=== PATIENT | female | born 1960 | race African-American/Black ===

== ENCOUNTER 2016-11-11 14:23 | Emergency (ER) | payer OTHER ==
[2016-11-11 14:33] VITALS: TEMP 98.8; BMI 28.3
--- NOTE | 2016-11-11 14:35 | PDOC ---
History of Present Illness <Miriam Casey - Last Filed: 11/11/16 16:31> - General History Source: Patient Exam Limitations: No Limitations - History of Present Illness Initial Comments: 11/11/16 14:58 The patient is a 56 year old female with a significant past medical history of asthma, and sarcoidosis, presenting to the Emergency Department with chest pain , and shortness of breath since Tuesday. She describes the chest pain as constant pressure and pain, 7/10 in intensity, and radiating to her arms, but slightly better since Tuesday. She admits that her breathing is very labored, but reports that this feels much different from an asthma attack. She also admits that she feels lightheaded. She admits that she had a stress test one year ago which was normal. She admits that she takes Prednisone as needed for her sarcoidosis, most recently on Tuesday. The patient denies palpitations, or diaphoresis. Patient denies nausea, vomiting , and diarrhea. Patient denies headache, or visual changes. Patient denies fever , chills, and cough. Patient states that she does not have a drier helper. <Adina Perrin - Last Filed: 11/11/16 17:07> - General Chief Complaint: Chest Pain Stated Complaint: CHEST PAIN Time Seen by Provider: 11/11/16 14:35 Past History - Past Medical History Anemia: No Asthma: No Cancer: No Cardiac Disorders: No CVA: No COPD: No (sarcadoisis) CHF: No Dementia: No Diabetes: No GI Disorders: No Disorders: No HTN: No Hypercholesterolemia: No Liver Disease: No Seizures: No Thyroid Disease: No - Surgical History Abdominal Surgery: No Appendectomy: No Cardiac Surgery: No Cholecystectomy: No Lung Surgery: No Neurologic Surgery: No Orthopedic Surgery: No - Psycho/Social/Smoking Cessation Hx Anxiety: No Suicidal Ideation: No Smoking History: Never smoked Have you smoked in the past 12 months: No Hx Alcohol Use: No Drug/Substance Use Hx: No Substance Use Type: None Hx Substance Use Treatment: No <Miriam Casey - Last Filed: 11/11/16 16:31> <Adina Perrin - Last Filed: 11/11/16 17:07> - Past Medical History Allergies/Adverse Reactions: Allergies Allergy/AdvReac Type Severity Reaction Status Date / Time No Known Allergies Allergy Verified 01/15/16 08:58 Home Medications: Ambulatory Orders Theophylline Anhydrous [Theophylline] 200 mg PO BID 10/12/14 Acetaminophen [Tylenol .Regular Strength -] 650 mg PO Q6H PRN #0 tablet Albuterol 0.083% Nebulizer Callie [Ventolin 0.083% Nebulizer Soln -] 1 neb NEB QID #0 01/17/16 Budesonide/Formeterol Fumarate [SYMBICORT 160/4.5mcg -] 1 inh PO DAILY #0 01/16 Gabapentin [Neurontin -] 100 mg PO TID #90 capsule 01/17/16 Prednisone [Deltasone -] 10 mg PO DAILY #0 01/17/16 Review of Systems - Review of Systems Able to Perform ROS?: Yes Comments:: 11/11/16 14:58 CONSTITUTIONAL: Present: + lightheaded Absent: fever, no chills, no fatigue EYES: Absent: visual changes ENT: Absent: ear pain, no sore throat CARDIOVASCULAR: Present: + chest pain Absent: no palpitations RESPIRATORY: Present: + shortness of breath Absent: cough GI: Absent: abdominal pain, no nausea, no vomiting, no constipation, no diarrhea GENITOURINARY: Absent: dysuria, no frequency, no hematuria MUSCULOSKELETAL: Absent: back pain, no arthralgia, no myalgia SKIN: Absent: rash NEURO: Absent: headache <Adina Perrin - Last Filed: 11/11/16 17:07> *Physical Exam - Vital Signs Last Vital Signs Temp Pulse Resp BP Pulse Ox 98.8 F 126 H 24 113/76 97 11/11/16 14:31 11/11/16 14:31 11/11/16 14:31 11/11/16 14:31 11/11/16 14:31 <Miriam Casey - Last Filed: 11/11/16 16:31> - Vital Signs Last Vital Signs Temp Pulse Resp BP Pulse Ox 98.8 F 126 H 24 113/76 97 11/11/16 14:31 11/11/16 14:31 11/11/16 14:31 11/11/16 14:31 11/11/16 14:31 - Physical Exam Comments: 11/11/16 15:16 GENERAL: Patient appears uncomfortable. Well developed, well nourished. Awake and alert. HEENT: Normocephalic, atraumatic. PERRLA, EOMI. No conjunctival pallor. Sclera are non- icteric. Moist mucous membranes. Oropharynx is clear. NECK: Supple. Full ROM. No JVD. Carotid pulses 2+ and symmetric, without bruits. No thyromegaly. No lymphadenopathy. CARDIOVASCULAR: Tachycardic, regular rhythm. No murmurs, rubs, or gallops. Distal pulses are 2+ and symmetric. PULMONARY: Tachypneic. Lungs clear to auscultation bilaterally. No wheezing, rales or rhonchi. ABDOMINAL: Soft. Non-tender. Non-distended. No rebound or guarding. No organomegaly. Normoactive bowel sounds. MUSCULOSKELETAL Normal range of motion at all joints. No bony deformities or tenderness. No CVA tenderness. EXTREMITIES: No cyanosis. No clubbing. No edema. No calf tenderness. SKIN: Warm and dry. Normal capillary refill. No rashes. No jaundice. NEUROLOGICAL: Alert, awake, appropriate. Cranial nerves 2-12 intact. PSYCHIATRIC: Cooperative. Good eye contact. Appropriate mood and affect. <Adina Perrin - Last Filed: 11/11/16 17:07> ED Treatment Course - LABORATORY CBC & Chemistry Diagram: 11/11/16 15:00 11/11/16 15:00 <Miriam Casey - Last Filed: 11/11/16 16:31> - LABORATORY CBC & Chemistry Diagram: 11/11/16 15:00 11/11/16 15:00 - RADIOLOGY Radiograph Interpretation: 11/11/16 17:06 Chest XRay As reviewed by Dr. Franck Jay IMPRESSION: No acute disease. <Adina Perrin - Last Filed: 11/11/16 17:07> Medical Decision Making - Medical Decision Making 11/11/16 15:48 Pt presents to the ED complaining of chest pain and shortness of breath that have been constant for three days. Feels like someone is punching her in the chest. EKG shows new positive R waves in v1 and v2, with small st depressions. No reciprocal changes. Also complaining of lightheadness. Negative stress test 01/12. Service drier helper Dr. Hoskins paged at 3:12 and 3:33. Responded at 3:33. Case discussed--recommended nitro and EKG with posterior leads. EKG with posterior leads showed 1 mm XIOMY in leads v7, v8 v9. Dr. Hoskins at the bedside. Recommending transfer for cardiac cath. BP dropped after nitroglycerin--improved with IV fluid bolus. Health System called for transfer at 4:00 pm. [employer] transportation arranged. 11/11/16 16:30 Patient accepted for transfer by Dr. Sellers of [facility]-- attending is Dr. Chaudhari. <Miriam Casey - Last Filed: 11/11/16 16:31> - Critical Care Time Total Critical Care Time (minutes): 30 (Multiple ECGs, consulted Dr. Hoskins, transferring to [facility]) Critical Care Statement: The care of this patient involved high complexity decision making to prevent further life threatening deterioration of the patient 's condition and/or to evalute & treat vital organ system(s) failure or risk of failure. - Medical Decision Making 11/11/16 16:20 Dr. Barragan was paged at 3:12. Dr. Hoskins is covering, awaiting call back. Dr. Hoskins was second paged at 3:33. Dr. Hoskins informed us that she was on her way to the ED. [facility] was called at 4:00. <Adina Perrin - Last Filed: 11/11/16 17:07> *DC/Admit/Observation/Transfer - Transfer to Acute Care Facility Receiving [facility]: [facility]. <Miriam Casey - Last Filed: 11/11/16 16:31> - Attestations Scribe Attestion: 11/11/16 15:18 Documentation prepared by Adina Perrin, acting as medical anthropology director for Miriam Casey MD. <Adina Perrin - Last Filed: 11/11/16 17:07> Diagnosis at time of Disposition: STEMI (ST elevation myocardial infarction) Qualifiers: Involved coronary artery: unspecified coronary artery Qualified Code(s): I21.3 - ST elevation (STEMI) myocardial infarction of unspecified site - Discharge Dispostion Disposition: TRANSFER ACUTE CARE/OTHER HOSP Condition at time of disposition: Critical - Referrals Referrals: Wayne Anderson MD [Primary Care Provider] -
[2016-11-11] MEDS ORDERED: ASPIRIN 81 MG CHEWABLE TABLETS PO ONE ×2 (14:56→14:57)
[2016-11-11] MEDS ORDERED: ASPIRIN 81 MG CHEWABLE TABLETS ONE (15:03)
[2016-11-11 15:35] LABS: BASOPHIL 0.2 % (0-2.0); MCH 28.8 pg (25.7-33.7); MCHC 32.8 g/dl (32.0-36.0); MEAN CELL VOLUME 87.7 fl (80-96); MEAN PLT VOLUME 9.5 fl (7.5-11.1); NEUTROPHILS 79.6 % (42.8-82.8); PLATELET COUNT 211 K/MM3 (134-434); RDW 13.7 % (11.6-15.6); WHITE BLOOD COUNT 13.1 K/mm3 (4.0-10.0)
[2016-11-11] MEDS ORDERED: NITROGLYCERIN SUBLINGUAL 1/150 0.4 MG TAB SL ONE (15:46)
[2016-11-11] MEDS ORDERED: ALBUTEROL SO4 2.5/IPRATROPIUM 0.5 INH SOL 3 ML VIAL.NEB. NEB ONE (15:51)
[2016-11-11 15:59] LABS: INR 1.4 (0.82-1.09); PROTHROMBIN TIME (PATIENT) 15.5 SEC (9.98-11.88)
[2016-11-11] MEDS ORDERED: CLOPIDOGREL BISULFATE 300 MG TABLET PO ONE (16:25)
[2016-11-11] MEDS ORDERED: ATORVASTATIN CA 80 MG TABLET (FP) PO ONE (16:28)
[2016-11-11] MEDS ORDERED: HEPARIN NA (PORCINE) 5,000 UNITS/ML 1ML VIAL IVPUSH PRN ×2 (16:29)
[2016-11-11] MEDS ORDERED: HEPARIN NA (PORCINE) 5,000 UNITS/ML 1ML VIAL ONE (16:29)
[2016-11-11] MEDS ORDERED: HEPARIN INFUSION - 500 ML IVPB ONE (16:29)
[2016-11-11] MEDS ORDERED: HEPARIN - 25,000 UNIT in SODIUM CHLORIDE 495 ML IV SCH (16:30)
[2016-11-11] MEDS ORDERED: CLOPIDOGREL BISULFATE 300 MG TABLET ONE (16:37)
[2016-11-11] MEDS ORDERED: ATORVASTATIN CA 80 MG TABLET (FP) ONE (16:38)
[2016-11-11] MEDS ORDERED: HEPARIN INFUSION - 500 ML IVPB SCH (16:45)
[2016-11-11 17:15] VITALS: BP 113/68; PULSE 112
--- NOTE | 2016-11-11 18:18 | CON.CARD ---
Cardiology Consult (text) - Consultation Consultation Note: Ambulatory Orders Theophylline Anhydrous [Theophylline] 200 mg PO BID 10/12/14 Acetaminophen [Tylenol .Regular Strength -] 650 mg PO Q6H PRN #0 tablet Albuterol 0.083% Nebulizer Callie [Ventolin 0.083% Nebulizer Soln -] 1 neb NEB QID #0 01/17/16 Budesonide/Formeterol Fumarate [SYMBICORT 160/4.5mcg -] 1 inh PO DAILY #0 01/16 Gabapentin [Neurontin -] 100 mg PO TID #90 capsule 01/17/16 Prednisone [Deltasone -] 10 mg PO DAILY #0 01/17/16 Vital Signs - 24 hr 11/11/16 11/11/16 14:31 17:13 Temperature 98.8 F Pulse Rate 126 H 112 H Pulse Rate [ 112 H Radial] Respiratory 24 18 Rate Blood Pressure 113/76 113/68 Blood Pressure 113/68 [Right Arm] O2 Sat by Pulse 97 99 Oximetry (%) Intake & Output 11/09/16 11/10/16 11/11/16 11/12/16 07:59 07:59 07:59 07:59 Weight 150 lb CBC, BMP 11/11/16 15:00
[2016-11-11 18:19] LABS: ANION GAP 10 (8-16); CALCIUM 8.3 mg/dL (8.5-10.1); CO2 25 mmol/L (21-32); CREATININE 0.8 mg/dL (0.55-1.02); GLUCOSE,RANDOM 132 mg/dL (74-106); SGOT/AST 167 U/L (15-37); SGPT/ALT 48 U/L (12-78)
[2016-11-11 18:35] LABS: ALK PHOS 67 U/L (45-117); BILIRUBIN,TOTAL 0.6 mg/dL (0.2-1.0); TOT PROT 7.5 g/dl (6.4-8.2)
--- NOTE | 2016-11-12 09:43 | EKG ---
Test Reason : Blood Pressure : / mmHG Vent. Rate : 104 BPM Atrial Rate : 104 BPM P-R Int : 146 ms QRS Dur : 088 ms QT Int : 324 ms P-R-T Axes : 051 -37 032 degrees QTc Int : 426 ms SINUS TACHYCARDIA POSSIBLE LEFT ATRIAL ENLARGEMENT LEFT AXIS DEVIATION INFERIOR INFARCT , AGE UNDETERMINED ANTEROLATERAL INFARCT (CITED ON OR BEFORE 17-JUL-2015) ABNORMAL ECG Confirmed by KARIS MUIR MD ([id number]) on 11/12/2016 9:43:05 AM Referred By: Confirmed By:KARIS MUIR MD
--- NOTE | 2016-11-12 09:43 | EKG ---
Test Reason : Blood Pressure : / mmHG Vent. Rate : 127 BPM Atrial Rate : 127 BPM P-R Int : 134 ms QRS Dur : 078 ms QT Int : 306 ms P-R-T Axes : 051 -38 015 degrees QTc Int : 444 ms AGE AND GENDER SPECIFIC ECG ANALYSIS SINUS TACHYCARDIA POSSIBLE LEFT ATRIAL ENLARGEMENT LEFT AXIS DEVIATION INFERIOR INFARCT (CITED ON OR BEFORE 11-NOV-2016) LATERAL INJURY PATTERN ABNORMAL ECG WHEN COMPARED WITH ECG OF 11-NOV-2016 15:50, CRITERIA FOR ANTERIOR INFARCT ARE NO LONGER PRESENT CRITERIA FOR ANTEROLATERAL INFARCT ARE NO LONGER PRESENT ST ELEVATION NOW PRESENT IN LATERAL LEADS Confirmed by KARIS MUIR MD ([id number]) on 11/12/2016 9:42:42 AM Referred By: Confirmed By:KARIS MUIR MD
--- NOTE | 2016-11-19 10:41 | EKG ---
Test Reason : Blood Pressure : / mmHG Vent. Rate : 115 BPM Atrial Rate : 115 BPM P-R Int : 146 ms QRS Dur : 092 ms QT Int : 312 ms P-R-T Axes : 059 -38 033 degrees QTc Int : 431 ms SINUS TACHYCARDIA POSSIBLE LEFT ATRIAL ENLARGEMENT LEFT AXIS DEVIATION INFERIOR-POSTERIOR INFARCT , POSSIBLY ACUTE CANNOT RULE OUT ANTERIOR INFARCT (CITED ON OR BEFORE 17-JUL-2015) ABNORMAL ECG WHEN COMPARED WITH ECG OF 15-JAN-2016 08:57, SIGNIFICANT CHANGES HAVE OCCURRED Confirmed by KARIS MUIR MD ([id number]) on 11/19/2016 10:41:21 AM Referred By: Confirmed By:KARIS MUIR MD
== END 2016-11-11 17:16 | disposition short-term general hospital (02) ==
LOC: JER 14:23
PROC: 3E033GC Introduction of Other Therapeutic Substance into Peripheral Vein, Percutaneous Approach (ICD-10-PCS; principal; 2016-11-11)
DX: I21.3 ST elevation (STEMI) myocardial infarction of unspecified site (principal); J45.909 Unspecified asthma, uncomplicated; D86.9 Sarcoidosis, unspecified
CPT/HCPCS: 36415; 71010-TC; 80053; 82550; 82553; 84484; 85025; 85610; 93005; 93010; 99285-25; J1644

== ENCOUNTER 2017-06-14 09:54 | Emergency (ER) | payer OTHER ==
[2017-06-14 10:16] VITALS: BP 132/70; PULSE 73; TEMP 98.9; BMI 30.2
--- NOTE | 2017-06-14 12:10 | PDOC ---
History of Present Illness - General Chief Complaint: Back Pain Stated Complaint: BACK PAIN Time Seen by Provider: 06/14/17 11:59 History Source: Patient Exam Limitations: No Limitations - History of Present Illness Initial Comments: 06/14/17 12:06 57 yr female with right sided pain to her right chest radiates under her axilla to her right back for 2 days . no fever no cough, chronic SOB. Pt has not taken and pain meds [employer]. PMHX: high cholesterol sarcoid, HTN , DC with stent. 06/14/17 12:12 06/14/17 12:17 Severity: mild Aspirin Received prior to arrival: Yes: no aspirin today Past History - Past Medical History Allergies/Adverse Reactions: Allergies Allergy/AdvReac Type Severity Reaction Status Date / Time No Known Allergies Allergy Verified 06/14/17 10:12 Home Medications: Ambulatory Orders Theophylline Anhydrous [Theophylline] 200 mg PO BID 10/12/14 Acetaminophen [Tylenol .Regular Strength -] 650 mg PO Q6H PRN #0 tablet Albuterol 0.083% Nebulizer Callie [Ventolin 0.083% Nebulizer Soln -] 1 neb NEB QID #0 01/17/16 Budesonide/Formeterol Fumarate [SYMBICORT 160/4.5mcg -] 1 inh PO DAILY #0 Gabapentin [Neurontin -] 100 mg PO TID #90 capsule 01/17/16 Prednisone [Deltasone -] 10 mg PO DAILY #0 01/17/16 Anemia: No Asthma: No Cancer: No Cardiac Disorders: Yes (DC (STENTS X1)) CVA: No COPD: No (sarcadoisis) CHF: No Dementia: No Diabetes: No GI Disorders: No Disorders: No HTN: No Hypercholesterolemia: No Liver Disease: No Seizures: No Thyroid Disease: No - Surgical History Abdominal Surgery: No Appendectomy: No Cardiac Surgery: No Cholecystectomy: No Lung Surgery: No Neurologic Surgery: No Orthopedic Surgery: No - Immunization History Immunization Up to Date: Yes - Suicide/Smoking/Psychosocial Hx Smoking History: Never smoked Have you smoked in the past 12 months: No Information on smoking cessation initiated: No Hx Alcohol Use: No Drug/Substance Use Hx: No Substance Use Type: None Hx Substance Use Treatment: No Review of Systems - Review of Systems Able to Perform ROS?: Yes Is the patient limited Cymro proficient: No Constitutional: No: Symptoms Reported HEENTM: No: Symptoms Reported Respiratory: Yes: Symptoms reported, See HPI. No: Cough Cardiac (ROS): Yes: Symptoms Reported, Chest Pain ABD/GI: No: Symptoms Reported : No: Symptoms Reported Musculoskeletal: No: Symptoms Reported Integumentary: Yes: Symptoms Reported *Physical Exam - Vital Signs Last Vital Signs Temp Pulse Resp BP Pulse Ox 98.9 F 73 16 132/70 97 06/14/17 10:12 06/14/17 10:12 06/14/17 10:12 06/14/17 10:12 06/14/17 10:12 - Physical Exam General Appearance: Yes: Nourished, Appropriately Dressed HEENT: positive: EOMI, PHOEBE, Normal ENT Inspection, TMs Normal, Pharynx Normal Neck: positive: Supple. negative: Tender Respiratory/Chest: positive: Chest Tender (ttp right side chest wall ), Lungs Clear, Normal Breath Sounds Cardiovascular: positive: Regular Rhythm, Regular Rate Gastrointestinal/Abdominal: positive: Normal Bowel Sounds, Soft. 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 NML intact, Fully Oriented, Alert, Normal Mood/ Affect, Normal Response, Motor Strength 5/5 ED Treatment Course - LABORATORY CBC & Chemistry Diagram: 06/14/17 12:30 06/14/17 12:30 Medical Decision Making - Medical Decision Making 06/14/17 12:12 cc: right sided chest pain radiates to her back for 2 days no cough denies trauma pt has history of DC states pain feels different from her chest pain she had with her DC, however is "uncomfotable" pain is reproduced with walking and with movement will do EKG, labs, tylenol now for pain and re-eval pt endorsed to Piter Villalobos in main ER for further management. 06/14/17 12:19 *DC/Admit/Observation/Transfer Diagnosis at time of Disposition: Chest pain - Discharge Dispostion Disposition: AGAINST MEDICAL ADVICE Condition at time of disposition: Stable - Referrals Referrals: Wayne Anderson MD [Primary Care Provider] - - Patient Instructions Additional Instructions: Your evaluation is incomplete. Return to emergency department for any fevers, chest pain, shortness of breath, dizziness, abdominal pain, nausea, vomiting or any other concerns. Although your leaving AGAINST MEDICAL ADVICE, if her symptoms continue or return , please come back so we can continue your workup and treatment. - Post Discharge Activity
[2017-06-14] MEDS ORDERED: ACETAMINOPHEN 325 MG TABLET (FP) PO ONE (12:20)
[2017-06-14 12:55] LABS: HEMATOCRIT 42.3 % (32.4-45.2); HEMOGLOBIN 13.5 GM/dL (10.7-15.3); MCH 28.3 pg (25.7-33.7); MEAN CELL VOLUME 88.4 fl (80-96); MEAN PLT VOLUME 8.2 fl (7.5-11.1); PLATELET COUNT 246 K/MM3 (134-434); RBC 4.79 M/mm3 (3.60-5.2); RDW 14.5 % (11.6-15.6); WHITE BLOOD COUNT 4.4 K/mm3 (4.0-10.0)
[2017-06-14] MEDS ORDERED: ACETAMINOPHEN 325 MG TABLET (FP) ONE (12:56)
--- NOTE | 2017-06-14 13:21 | PDOC ---
*Physical Exam - Vital Signs Last Vital Signs Temp Pulse Resp BP Pulse Ox 98.9 F 73 16 132/70 97 06/14/17 10:12 06/14/17 10:12 06/14/17 10:12 06/14/17 10:12 06/14/17 10:12 <AaronLyndon - Last Filed: 06/14/17 15:06> - Vital Signs Last Vital Signs Temp Pulse Resp BP Pulse Ox 98.9 F 73 16 132/70 97 06/14/17 10:12 06/14/17 10:12 06/14/17 10:12 06/14/17 10:12 06/14/17 10:12 - Physical Exam General Appearance: Yes: Appropriately Dressed. No: Apparent Distress HEENT: positive: Normal ENT Inspection Neck: positive: Trachea midline, Supple Respiratory/Chest: positive: Decreased Breath Sounds (worse on left). negative : Respiratory Distress, Accessory Muscle Use Cardiovascular: positive: Regular Rhythm, Regular Rate. negative: S1, S2, Edema , Murmur Gastrointestinal/Abdominal: positive: Normal Bowel Sounds, Soft. negative: Tender Musculoskeletal: positive: Normal Inspection. negative: CVA Tenderness Extremity: positive: Normal Capillary Refill, Normal Inspection Integumentary: positive: Normal Color, Dry, Warm Neurologic: positive: Fully Oriented, Alert, Normal Mood/Affect, Normal Response , Motor Strength 5/5 <Wayne Villalobos - Last Filed: 06/14/17 15:14> ED Treatment Course - LABORATORY CBC & Chemistry Diagram: 06/14/17 12:30 06/14/17 12:30 - ADDITIONAL ORDERS Additional order review: Laboratory Results 06/14/17 06/14/17 06/14/17 12:30 12:30 12:30 WBC RBC Hgb Hct MCV MCH MCHC RDW Plt Count MPV PT with INR 10.40 INR 0.92 D PTT (Actin FS) 37.2 H Sodium 142 Potassium 4.0 Chloride 106 Carbon Dioxide 31 D Anion Gap 5 L BUN 14 Creatinine 0.8 Creat Clearance w eGFR > 60 Random Glucose 86 Calcium 8.7 Total Bilirubin 0.3 D AST 22 D ALT 30 D Alkaline Phosphatase 90 Creatine Kinase 279 H Creatine Kinase Index 1.1 CK-MB (CK-2) 3.339 Troponin I 0.05 Total Protein 7.5 Albumin 3.7 06/14/17 12:30 WBC 4.4 D RBC 4.79 Hgb 13.5 Hct 42.3 MCV 88.4 MCH 28.3 MCHC 32.0 RDW 14.5 Plt Count 246 MPV 8.2 D PT with INR INR PTT (Actin FS) Sodium Potassium Chloride Carbon Dioxide Anion Gap BUN Creatinine Creat Clearance w eGFR Random Glucose Calcium Total Bilirubin AST ALT Alkaline Phosphatase Creatine Kinase Creatine Kinase Index CK-MB (CK-2) Troponin I Total Protein Albumin 06/14/17 12:30 RBC 4.79 MCV 88.4 MCHC 32.0 RDW 14.5 MPV 8.2 D - Medications Given in the ED: ED Medications Discontinued Medications Generic Name Dose Route Start Last Admin Trade Name Freq PRN Reason Stop Dose Admin Acetaminophen 650 mg 06/14/17 12:20 06/14/17 12:58 Tylenol - PO 06/14/17 12:21 650 mg ONCE ONE Administration <Lyndon Walker - Last Filed: 06/14/17 15:06> - LABORATORY CBC & Chemistry Diagram: 06/14/17 12:30 06/14/17 12:30 - ADDITIONAL ORDERS Additional order review: 06/14/17 12:30 RBC 4.79 MCV 88.4 MCHC 32.0 RDW 14.5 MPV 8.2 D - Medications Given in the ED: ED Medications Discontinued Medications Generic Name Dose Route Start Last Admin Trade Name Freq PRN Reason Stop Dose Admin Acetaminophen 650 mg 06/14/17 12:20 06/14/17 12:58 Tylenol - PO 06/14/17 12:21 650 mg ONCE ONE Administration <Wayne Villalobos - Last Filed: 06/14/17 15:14> Progress Note - Progress Note Progress Note: Received patient from GALI Leal. See previous note for plan. I will reevaluate once testing has been completed. <Wayne Villalobos - Last Filed: 06/14/17 15:14> Medical Decision Making - Medical Decision Making 06/14/17 15:13 Initial troponin is negative. Implanted redraw troponins was discussed with patient understands the plan. 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 It has been explained to the patient that she would have to leave AGAINST MEDICAL ADVICE as her evaluation is incomplete at the present moment. Patient is aware that she can return at any time to continue her workup for reevaluation. Patient states will return later today for continued evaluation of her chest pain. <Wayne Villalobos - Last Filed: 06/14/17 15:14> *DC/Admit/Observation/Transfer - Discharge Dispostion Admit: No <Lyndon Walker - Last Filed: 06/14/17 15:06> - Discharge Dispostion Admit: No <Wayne Villalobos - Last Filed: 06/14/17 15:14> Diagnosis at time of Disposition: Chest pain Qualifiers: Chest pain type: unspecified Qualified Code(s): R07.9 - Chest pain, unspecified - Discharge Dispostion Disposition: AGAINST MEDICAL ADVICE Condition at time of disposition: Stable - Referrals Referrals: Wayne Anderson MD [Primary Care Provider] - - Patient Instructions Additional Instructions: Your evaluation is incomplete. Return to emergency department for any fevers, chest pain, shortness of breath, dizziness, abdominal pain, nausea, vomiting or any other concerns. Although your leaving AGAINST MEDICAL ADVICE, if her symptoms continue or return , please come back so we can continue your workup and treatment. - Post Discharge Activity
[2017-06-14 13:27] LABS: ALBUMIN 3.7 g/dl (3.4-5.0); ANION GAP 5 (8-16); BILIRUBIN,TOTAL 0.3 mg/dL (0.2-1.0); BLOOD UREA NITROGEN 14 mg/dL (7-18); CALCIUM 8.7 mg/dL (8.5-10.1); CHLORIDE 106 mmol/L (98-107); CO2 31 mmol/L (21-32); CREATININE 0.8 mg/dL (0.55-1.02); GLUCOSE,RANDOM 86 mg/dL (74-106); SGPT/ALT 30 U/L (12-78); SODIUM 142 mmol/L (136-145)
[2017-06-14 13:30] LABS: ALK PHOS 90 U/L (45-117); SGOT/AST 22 U/L (15-37); TOT PROT 7.5 g/dl (6.4-8.2)
[2017-06-14 14:03] LABS: INR 0.92 (0.82-1.09); PROTHROMBIN TIME (PATIENT) 10.4 SEC (9.98-11.88)
[2017-06-14 14:06] LABS: ACTIVATED PTT 37.2 SECONDS (26.9-34.4)
== END 2017-06-14 15:21 | disposition left against medical advice (07) ==
LOC: JERFT 09:54 → JER 09:54
DX: R07.9 Chest pain, unspecified (principal); I25.2 Old myocardial infarction; Z95.5 Presence of coronary angioplasty implant and graft; D86.9 Sarcoidosis, unspecified
CPT/HCPCS: 36415; 80053; 82550; 82553; 84484; 85027; 85610; 85730; 99282-25

== ENCOUNTER 2017-06-14 16:49 | Emergency (ER) | payer OTHER ==
[2017-06-14 17:28] VITALS: BP 125/74; PULSE 72; TEMP 98.3; BMI 30.2
--- NOTE | 2017-06-14 17:28 | PDOC ---
Rapid Medical Evaluation Chief Complaint: Chest Pain Time Seen by Provider: 06/14/17 17:24 Medical Evaluation: Allergies Allergy/AdvReac Type Severity Reaction Status Date / Time No Known Allergies Allergy Verified 06/14/17 17:24 06/14/17 17:24 I have performed a brief in-person evaluation of this patient. The patient presents after signing out AMA today. Patient here for chest pain States pain still present on the left side radiating down into back. Reports shortness of breath no dizziness or nausea. Pertinent physical exam findings: NAD unlabored breathing no pallor I have ordered the following: troponin The patient will proceed to the Ed for further evaluation.
--- NOTE | 2017-06-14 17:57 | PDOC ---
History of Present Illness - General Chief Complaint: Chest Pain Stated Complaint: CHEST PAIN Time Seen by Provider: 06/14/17 17:24 History Source: Patient Exam Limitations: No Limitations - History of Present Illness Initial Comments: 06/14/17 17:51 This is a 57-year-old woman past medical history of sarcoidosis and [place] with stent placed in November 2016 who presents to the emergency department with continued right-sided chest pain radiating under her breast to her back. Patient states the pain gets worse when she takes a deep breath. Patient was seen and evaluated earlier today and left the hospital AMA to picker and packer her 3-year -old grandchild. The previous visit for troponin was negative and the initial plan was to repeat the troponin at 4 hours. Patient has return for care to continue the evaluation. She continues to deny worsening shortness of breath, fevers, chills, nausea, vomiting. 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[employer]: Tricia- patient has an appointment on TuesdayJune 20 PMH: Sarcoidosis, [place] with stents in November 2016 PSH: Denies NKDA Past History - Past Medical History Allergies/Adverse Reactions: Allergies Allergy/AdvReac Type Severity Reaction Status Date / Time No Known Allergies Allergy Verified 06/14/17 17:25 Home Medications: Ambulatory Orders Theophylline Anhydrous [Theophylline] 200 mg PO BID 10/12/14 Acetaminophen [Tylenol .Regular Strength -] 650 mg PO Q6H PRN #0 tablet Albuterol 0.083% Nebulizer Callie [Ventolin 0.083% Nebulizer Soln -] 1 neb NEB QID #0 01/17/16 Budesonide/Formeterol Fumarate [SYMBICORT 160/4.5mcg -] 1 inh PO DAILY #0 Gabapentin [Neurontin -] 100 mg PO TID #90 capsule 01/17/16 Prednisone [Deltasone -] 10 mg PO DAILY #0 01/17/16 Anemia: No Asthma: No Cancer: No Cardiac Disorders: Yes ([place] (STENTS X1)) CVA: No COPD: No (sarcadoisis) CHF: No DVT: No Dementia: No Diabetes: No GI Disorders: No Disorders: No HTN: No Hypercholesterolemia: No Liver Disease: No Seizures: No Thyroid Disease: No - Surgical History Abdominal Surgery: No Appendectomy: No Cardiac Surgery: No Cholecystectomy: No Lung Surgery: No Neurologic Surgery: No Orthopedic Surgery: No - Immunization History Immunization Up to Date: Yes - Suicide/Smoking/Psychosocial Hx Smoking History: Never smoked Have you smoked in the past 12 months: No Information on smoking cessation initiated: No Hx Alcohol Use: No Drug/Substance Use Hx: No Substance Use Type: None Hx Substance Use Treatment: No Cardiac Specific PMH - Complaint Specific PMHX Pacemaker: No Review of Systems - Review of Systems Able to Perform ROS?: Yes Is the patient limited Telugu proficient: No Constitutional: No: Symptoms Reported HEENTM: No: Symptoms Reported Respiratory: No: Symptoms reported Cardiac (ROS): Yes: See HPI ABD/GI: No: Symptoms Reported : No: Symptoms Reported Musculoskeletal: No: Symptoms Reported Integumentary: No: Symptoms Reported Neurological: No: Symptoms reported Endocrine: No: Symptoms Reported Hematologic/Lymphatic: No: Symptoms Reported *Physical Exam - Vital Signs Last Vital Signs Temp Pulse Resp BP Pulse Ox 98.3 F 72 16 125/74 97 06/14/17 17:25 06/14/17 17:25 06/14/17 17:25 06/14/17 17:25 06/14/17 17:25 - Physical Exam General Appearance: Yes: Appropriately Dressed. No: Apparent Distress HEENT: positive: Normal ENT Inspection Neck: positive: Trachea midline, Supple Respiratory/Chest: positive: Lungs Clear, Normal Breath Sounds. negative: Respiratory Distress, Accessory Muscle Use Cardiovascular: positive: Regular Rhythm, Regular Rate, S1, S2. negative: Edema , Murmur Gastrointestinal/Abdominal: positive: Normal Bowel Sounds, Soft. negative: Tender Musculoskeletal: positive: Normal Inspection. negative: CVA Tenderness Extremity: positive: Normal Capillary Refill, Normal Inspection Integumentary: positive: Normal Color, Dry, Warm Neurologic: positive: Fully Oriented, Alert, Normal Mood/Affect, Normal Response , Motor Strength 5/5 ED Treatment Course - RADIOLOGY Radiology Studies Ordered: Category Date Time Status CHEST PA & LAT [RAD] Stat Radiology 06/14/17 17:50 Taken Medical Decision Making - Medical Decision Making 06/14/17 17:55 A/P: This is a 57-year-old woman past medical history of sarcoidosis and [place] with stent placed in November 2016 who presents to the emergency department with continued right-sided chest pain radiating under her breast to her back. Patient was seen and evaluated earlier today and left the hospital AMA to picker and packer her 3-year-old grandchild. The previous visit for troponin was negative and the initial plan was to repeat the troponin at 4 hours. Patient has return for care to continue the evaluation. She continues to deny worsening shortness of breath, fevers, chills, nausea, vomiting. Lungs clear to auscultation bilaterally. Regular rate and rhythm. S1 and S2 presents. No murmur, rub or gallop noted. Abdomen soft nontender nondistended. Differential diagnoses include ACS versus costochondritis versus pneumonia Pneumonia less likely given afebrile and normal O2 saturation, normal respiratory rate and lack of tachycardia. Patient is not coughing. Patient had negative troponin at 12:30 this afternoon. I will obtain repeat troponin and chest x-ray. 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 06/14/17 18:56 Dr. Medrano's office contacted. Awaiting callback to discuss case. *DC/Admit/Observation/Transfer - Referrals Referrals: Wayne Anderson MD [Primary Care Provider] - - Patient Instructions - Post Discharge Activity
--- NOTE | 2017-06-14 20:03 | PDOC ---
*Physical Exam - Vital Signs Last Vital Signs Temp Pulse Resp BP Pulse Ox 98.3 F 72 16 125/74 97 06/14/17 17:25 06/14/17 17:25 06/14/17 17:25 06/14/17 17:25 06/14/17 17:25 - Physical Exam Comments: 06/14/17 19:51 Sign-out received from outgoing ER provider Wilfredo. Pt interviewed and examined. Ancillary studies reviewed. In short this is a Spoke with patient's Dr. Quigley of pt's cards team. Likely noncardiac related as trop is negative. Patient is well appearing, with no exertional dyspnea or conversational dyspnea, and continues to deny any shortness of breath. Will discharge to home with NSAIDS. Advised patient to take medication as prescribed and follow up with tube depatcher THIS WEEK. Advised patient of signs and symptoms for return to ED. Patient verbalized understanding and agrees to plan. ED Treatment Course - ADDITIONAL ORDERS Additional order review: Laboratory Results 06/14/17 17:52 Troponin I 0.05 *DC/Admit/Observation/Transfer Diagnosis at time of Disposition: Chest pain Qualifiers: Chest pain type: unspecified Qualified Code(s): R07.9 - Chest pain, unspecified - Discharge Dispostion Disposition: HOME Condition at time of disposition: Stable Admit: No - Prescriptions Prescriptions: Naproxen 375 mg PO BID #14 tablet - Referrals Referrals: Wayne Anderson MD [Primary Care Provider] - - Patient Instructions Printed Discharge Instructions: DI for Atypical Chest Pain Additional Instructions: Please take medication as prescribed. Follow up with Dr. Medrano's office THIS WEEK. If you develop any new onset chest pain, shortness of breath, palpitations, weakness, or any new or worsening symptoms, please return to the ER immediately. - Post Discharge Activity
--- NOTE | 2017-06-15 10:56 | EKG ---
Test Reason : Blood Pressure : / mmHG Vent. Rate : 073 BPM Atrial Rate : 073 BPM P-R Int : 158 ms QRS Dur : 094 ms QT Int : 384 ms P-R-T Axes : 026 -41 -08 degrees QTc Int : 423 ms POOR DATA QUALITY, INTERPRETATION MAY BE ADVERSELY AFFECTED NORMAL SINUS RHYTHM LEFT AXIS DEVIATION INFERIOR INFARCT (CITED ON OR BEFORE 11-NOV-2016) ANTEROLATERAL INFARCT , AGE UNDETERMINED ABNORMAL ECG WHEN COMPARED WITH ECG OF 11-NOV-2016 15:59, VENT. RATE HAS DECREASED BY 54 BPM ANTERIOR INFARCT IS NOW PRESENT ANTEROLATERAL INFARCT IS NOW PRESENT ST NO LONGER ELEVATED IN LATERAL LEADS Confirmed by DAT HUBBARD, ISIDRO ([id number]) on 06/15/2017 10:56:30 AM Referred By: Confirmed By:ISIDRO DAUGHERTY MD
== END 2017-06-14 20:00 | disposition home or self-care (01) ==
LOC: JER 16:49
DX: R07.9 Chest pain, unspecified (principal)
CPT/HCPCS: 36415; 71046-TC; 84484; 93005; 93010; 99281-25

== ENCOUNTER 2017-12-15 14:34 | Emergency (ER) | payer OTHER ==
[2017-12-15 14:40] VITALS: BP 140/90; PULSE 69; TEMP 98.1; BMI 30.2
--- NOTE | 2017-12-15 14:45 | PDOC ---
Attending Attestation - Resident Resident Name: Apollo Hayden - ED Attending Attestation I have performed the following: I have examined & evaluated the patient, The case was reviewed & discussed with the resident, I agree w/resident's findings & plan, Exceptions are as noted - HPI HPI: 12/15/17 16:31 The patient is a 57 year old female, with a significant PMH of [place] (1 year ago, stent placed, on plavix and aspirin), asthma and sarcoidosis who presents to the emergency department with with right foot pain for 2 days. The patient reports that she was at work yesterday when a metal door from a desk fell on her right foot. She was abmublaqtory yesterday and she iced her foot following the incident but still had persistent pain today. The patient reports difficulty ambulating secondary to right foot pain. She reports that her right foot pain has progressively worsened overnight from her right ankle to her toes. The patient describes her right foot pain as pins and needles. She reports taking 2 tylenol with no apparent relief. The patient denies any other symptoms. No other injuries - Physicial Exam PE: 12/15/17 16:38] General: no acute distress, well appearing MSK: R foot - diffuse tenderness to palpation of dorsum of R forefoot. no crepitus, ecchymosis, edema. no bony tenderness of ankle, toes, heel. normal movement of toes/ankle witout limitations. sensation intact symmetrically b/l. - Medical Decision Making 12/15/17 16:39 ddx: contusion vs fx - xray negative for acute injury/fracture on her foot pt taking tylenol without signifcant releif, but declines any meds here asshe has to drive home will give pt rx for some tramadol pt placed in hard sole shoereturn precautions were discussed
--- NOTE | 2017-12-15 15:05 | PDOC ---
History of Present Illness - General Chief Complaint: Injury Stated Complaint: RT FOOT INJURY Time Seen by Provider: 12/15/17 14:43 History Source: Patient Exam Limitations: No Limitations - History of Present Illness Initial Comments: 12/15/17 15:05 57 yo female pmh of an [place] 1 year ago (stent placed and on plavix and aspirin) and sarcoidosis presents to ED after having a metal door fall on her right foot yesterday afternoon. Patient states she has difficulty ambulating and progressively worsening pain in her right foot from her ankle to her toes. Pain is described as pins and needles. Patient tried 2 tylenol tablets with no help. SHe iced and elevated her ankle after the event. Timing/Duration: 24 hours Past History - Past Medical History Allergies/Adverse Reactions: Allergies Allergy/AdvReac Type Severity Reaction Status Date / Time No Known Allergies Allergy Verified 12/15/17 14:35 Home Medications: Ambulatory Orders Aspirin [Aspirin EC] 81 mg PO DAILY 12/15/17 Atorvastatin Ca [Lipitor] 20 mg PO DAILY 12/15/17 Clopidogrel Bisulfate [Plavix] 75 mg PO DAILY 12/15/17 Anemia: No Asthma: No Cancer: No Cardiac Disorders: Yes ([place] (STENTS X1)) CVA: No COPD: (SARCOIDOSIS) CHF: No DVT: No Dementia: No Diabetes: No GI Disorders: No Disorders: No HTN: No Hypercholesterolemia: No Liver Disease: No Seizures: No Thyroid Disease: No - Surgical History Abdominal Surgery: No Appendectomy: No Cardiac Surgery: Yes (CARDIAC STENT) Cholecystectomy: No Lung Surgery: No Neurologic Surgery: No Orthopedic Surgery: No - Immunization History Immunization Up to Date: Yes - Suicide/Smoking/Psychosocial Hx Smoking History: Never smoked Have you smoked in the past 12 months: No Information on smoking cessation initiated: No Hx Alcohol Use: No Drug/Substance Use Hx: No Substance Use Type: None Hx Substance Use Treatment: No Review of Systems - Review of Systems Able to Perform ROS?: Yes Musculoskeletal: Yes: Joint Pain, Joint Swelling (right ankle) Neurological: Yes: Numbness (right ankle and foot), Paresthesia, Tingling *Physical Exam - Vital Signs Last Vital Signs Temp Pulse Resp BP Pulse Ox 98.1 F 69 18 140/90 100 12/15/17 14:34 12/15/17 14:34 12/15/17 14:34 12/15/17 14:34 12/15/17 14:34 - Physical Exam General Appearance: Yes: Appropriately Dressed. No: Apparent Distress Respiratory/Chest: positive: Lungs Clear Cardiovascular: positive: Regular Rhythm, Regular Rate Vascular Pulses: Dorsalis-Pedis (R): 4+, Doralis-Pedis (L): 4+ Comments:: 12/15/17 15:31 equal and normal posterior tibial pulses Extremity: positive: Other (right foot and ankle tender to plapation throughout. Minimal swelling noted around sinus tarsi. Normal cap refills) Neurologic: positive: Fully Oriented, Alert, Normal Response, Motor Strength 5/5 Medical Decision Making - Medical Decision Making 12/15/17 15:58 57 yo female presents to ED after metal sorter fell on her foot yesterday afternoon. On exam, patient very tender to palpation throughout the right foot and ankle but neurovascularly intact. DDx contusion vs fracture. 2 view foot xray negative for fracture. Recommend post op shoe for more support and Ice/elevation of the affected area. *DC/Admit/Observation/Transfer Diagnosis at time of Disposition: Foot pain Qualifiers: Laterality: right Qualified Code(s): M79.671 - Pain in right foot - Discharge Dispostion Disposition: HOME Condition at time of disposition: Stable Decision to Admit order: No - Referrals - Patient Instructions Additional Instructions: Please follow up with PCP within 48 hours of the ER visit. Return to ER with new or worsening signs or symptoms such as progressive tingling or complete loss of feeling in the right foot Continue to rest, Ice, compress and elevate right foot - Post Discharge Activity
== END 2017-12-15 16:30 | disposition home or self-care (01) ==
LOC: FER 14:34
DX: M79.671 Pain in right foot (principal); W20.8XXA Other cause of strike by thrown, projected or falling object, initial encounter; Y93.9 Activity, unspecified; Y92.9 Unspecified place or not applicable; Y99.0 Civilian activity done for income or pay; I25.2 Old myocardial infarction; Z95.5 Presence of coronary angioplasty implant and graft; Z79.01 Long term (current) use of anticoagulants; Z79.82 Long term (current) use of aspirin; J45.909 Unspecified asthma, uncomplicated; D86.9 Sarcoidosis, unspecified
CPT/HCPCS: 73630-TC-RT-FY; 99283-25

== ENCOUNTER 2017-12-27 18:05 | Observation (INO) | payer OTHER ==
[2017-12-27] MEDS ORDERED: ASPIRIN 325 MG TABLET PO ONE (18:23)
[2017-12-27 18:25] VITALS: BMI 30.2
--- NOTE | 2017-12-27 18:25 | PDOC ---
Rapid Medical Evaluation Time Seen by Provider: 12/27/17 18:20 Medical Evaluation: Allergies Allergy/AdvReac Type Severity Reaction Status Date / Time No Known Allergies Allergy Verified 12/27/17 18:21 12/27/17 18:21 Pt states she has a neck spasm down her L neck. States that her L arm is numb. Also states she had similar symptoms one year ago and had a heart attack. Denies chest pain at this time. Exam: RRR, CTAB. Ambulatory Orders: Labs, EKG , Urine Pt to proceed to ED for further evaluation. Discharge Disposition - Diagnosis Left arm numbness - Referrals - Patient Instructions - Post Discharge Activity
[2017-12-27] MEDS ORDERED: ASPIRIN 81 MG CHEWABLE TABLETS ONE (19:09)
--- NOTE | 2017-12-27 19:10 | PDOC ---
History of Present Illness - General Chief Complaint: CVA/TIA Stated Complaint: NUMBNESS Time Seen by Provider: 12/27/17 18:20 - History of Present Illness Initial Comments: 12/27/17 19:58 The patient is a 57 year old female with a history of Sarcoidosis, [place] s/p 1x stent who presents for evaluation of left neck pain and arm numbness. The patient notes a 7 day history of intermittent left-sided neck pain with radiation down her left arm that she describes as a muscle spasm. She notes that she had similar symptoms with her right arm 1 year ago when she experienced her RI and her PCP recommended that she present to the ED for further evaluation. She notes some mild numbness as well in her left arm but otherwise denies fevers, chills, SOB, chest pain, nausea, vomiting, abdominal pain, tingling, weakness, or changes with urination or bowel movements. Past History - Past Medical History Allergies/Adverse Reactions: Allergies Allergy/AdvReac Type Severity Reaction Status Date / Time No Known Allergies Allergy Verified 12/27/17 18:21 Home Medications: Ambulatory Orders Aspirin [Aspirin EC] 81 mg PO DAILY 12/15/17 Atorvastatin Ca [Lipitor] 20 mg PO DAILY 12/15/17 Clopidogrel Bisulfate [Plavix] 75 mg PO DAILY 12/15/17 Tramadol HCl 50 mg PO QID PRN #12 tablet MDD 4 12/15/17 Anemia: No Asthma: No Cancer: No Cardiac Disorders: Yes ([place] (STENTS X1)) CVA: No COPD: No CHF: No DVT: No Dementia: No Diabetes: No GI Disorders: No Disorders: No HTN: No Hypercholesterolemia: No Liver Disease: No Seizures: No Thyroid Disease: No Other medical history: SARCOIDOSIS - Surgical History Abdominal Surgery: No Appendectomy: No Cardiac Surgery: Yes (CARDIAC STENT) Cholecystectomy: No Lung Surgery: No Neurologic Surgery: No Orthopedic Surgery: No - Immunization History Immunization Up to Date: Yes - Suicide/Smoking/Psychosocial Hx Smoking History: Never smoked Have you smoked in the past 12 months: No Hx Alcohol Use: No Drug/Substance Use Hx: No Substance Use Type: None Hx Substance Use Treatment: No Review of Systems - Review of Systems Comments:: 12/27/17 20:04 Constitutional: No fevers, chills, fatigue, malaise HEENT: Left sided neck pain. No Rhinorrhea, nasal congestion, visual changes Cardiovascular: No chest pain, syncope, palpitations, lightheadedness Respiratory: No Cough, SOB, Hemoptysis, Gastrointestinal: No Abdominal pain, Nausea, Vomiting, Constipation, Diarrhea, Melena Genitourinary: No Dysuria, Frequency, Urgency, Hesitancy, Hematuria, Flank pain Musculoskeletal: No Myalgia, arthralgia Skin: No rashes, itching, bruising, pallor Neurologic: Left arm numbness. No Headache, Dizziness, Weakness, or Tingling Psychiatric: No Hallucinations. No SI or HI *Physical Exam - Vital Signs Last Vital Signs Temp Pulse Resp BP Pulse Ox 98.4 F 80 19 142/85 98 12/27/17 18:21 12/27/17 18:21 12/27/17 18:21 12/27/17 18:21 12/27/17 18:21 - Physical Exam Comments: 12/27/17 20:04 General Appearance: Nourished. No Apparent Distress HEENT: EOMI, PHOEBE. No Pharyngeal Erythema, Tonsillar Exudate, Tonsillar Erythema Neck: Reproducible tenderness to palpation along the left neck and left shoulder. No Cervical Lymphadenopathy Respiratory/Chest: Lungs Clear, Normal Breath Sounds. No Crackles, Rales, Rhonchi, Wheezing Cardiovascular: Regular Rhythm, Regular Rate. No Murmur, Gallops, Rubs Gastrointestinal/Abdominal: Normal Bowel Sounds, Soft. No Guarding, Rebound, Tenderness Musculoskeletal: No CVA Tenderness Extremity: Normal Capillary Refill Integumentary: Normal Color, Dry, Warm Neurologic: hair designer II-XII NML intact, Fully Oriented, Alert, Normal Mood/Affect, Normal Response, Motor Strength 5/5. Normal Finger to Nose and Heel to Hammer Heart Score/ECG Review - History History: Moderately suspicious - Electrocardiogram EKG: Non specific repolarization disturbance - Age Age: 45-65 - Risk Factors Risk Factors Heart Score: Yes Positive family hx of cardiac disease, Yes Hx Obesity Based on the list above the patient has:: 1-2 risk factors - Troponin Troponin: 1-3x normal limit - Score Heart Score - Total: 5 #1 ECG reviewed & interpreted by me at: 20:37 (Left Asix Deviation) General ECG Interpretation: Sinus Rhythm, Normal Rate, Normal Intervals, No acute ischemic changes ED Treatment Course - LABORATORY CBC & Chemistry Diagram: 12/27/17 19:21 12/27/17 19:21 Medical Decision Making - Medical Decision Making 12/27/17 20:06 The patient is a 57 year old female with a history of Sarcoidosis, [place] s/p 1x stent who presents for evaluation of left neck pain and arm numbness. Differential includes but is not limited to: ACS, Musculoskeletal, Disc Disease , Infectious, Metabolic Derangement. Given the patient's history and physical exam, it is likely her symptoms are musculoskeletal in nature. However, we will obtain a cbc, cmp, troponin, ua, ekg, chest plain film to evaluate further for possible etiologies. We will treat in the meantime with asa, toradol, and robaxin. We will continue to monitor and reassess while here in the ED. 12/27/17 20:48 CBC, cmp are unremarkable. Troponin is elevated to 0.09 and gómez patient reports continued symptoms. We will treat with lopressor and nitropaste and believe the patient should be observed in the hospital for serial troponins. We discussed the results with the patient who is agreeable with the plan. 12/27/17 20:57 We discussed the case with the hospitalist team who accepted the patient for admission. *DC/Admit/Observation/Transfer Diagnosis at time of Disposition: Left arm numbness, Elevated troponin - Discharge Dispostion Condition at time of disposition: Stable Decision to Admit order: Yes - Referrals Referrals: Wayne Anderson MD [Primary Care Provider] - - Patient Instructions - Post Discharge Activity
[2017-12-27] MEDS ORDERED: ASPIRIN 325 MG TABLET ONE (19:11)
[2017-12-27 19:29] LABS: BASO % 1.2 % (0-2.0); EOS % 2.2 % (0-4.5); HEMATOCRIT 42.1 % (32.4-45.2); HEMOGLOBIN 14.2 GM/dL (10.7-15.3); LYMPH % 41.3 % (8-40); MCH 29.7 pg (25.7-33.7); MCHC 33.6 g/dl (32.0-36.0); MEAN CELL VOLUME 88.3 fl (80-96); MEAN PLT VOLUME 7.8 fl (7.5-11.1); MONO % 6.6 % (3.8-10.2); NEUT % 48.7 % (42.8-82.8); PLATELET COUNT 253 K/MM3 (134-434); RBC 4.77 M/mm3 (3.60-5.2); RDW 13.9 % (11.6-15.6); WHITE BLOOD COUNT 3.8 K/mm3 (4.0-10.0)
--- NOTE | 2017-12-27 19:40 | PDOC ---
Attending Attestation - HPI HPI: 12/27/17 19:42 The patient is a 57 year old female, with a significant past medical history of MD (2017) s/p stent x1, and sarcoidosis, who presents to the emergency department with several days of left neck pain radiating to her left arm. She states the pain feels like muscle spasms with intermittent numbness the the left arm. She states she had similar symptoms on the right during her MD last year which is what prompted the patient to come to the ED for evaluation today. She denies any chest pain at this time. The patient denies shortness of breath, headache and dizziness. The patient denies fever, chills, nausea, vomit, diarrhea and constipation. The patient denies dysuria, frequency, urgency and hematuria. Allergies: NKDA Past surgical history: cardiac stent Social history: Pt denies toxic habits PCP - Dr. Anderson - Medical Decision Making 12/27/17 19:42 Documentation prepared by Rochelle Hairston, acting as biomedical service engineer for Navjot Ibrahim DO <Rochelle Hairston - Last Filed: 12/27/17 20:27> - Resident Resident Name: Mikey Lobato - ED Attending Attestation I have performed the following: I have examined & evaluated the patient, The case was reviewed & discussed with the resident, I agree w/resident's findings & plan, Exceptions are as noted - Physicial Exam PE: 12/27/17 20:36 *Physical Exam General Appearance: Yes: Appropriately Dressed. No: Apparent Distress, Intoxicated HEENT: positive: EOMI, PHOEBE, Normal ENT Inspection, Normal Voice, TMs Normal, Pharynx Normal. negative: Pale Conjunctivae, Photophobia, Scleral Icterus (R), Scleral Icterus (L) Neck: positive: Trachea midline, Normal Thyroid, Supple. negative: Tender, Rigid, Carotid bruit, Stridor, Lymphadenopathy (R), Lymphadenopathy (L), Thyromegaly Respiratory/Chest: positive: Lungs Clear, Normal Breath Sounds. negative: Chest Tender, Respiratory Distress, Accessory Muscle Use, Labored Respiration, RES, Crackles, Rales, Rhonchi, Stridor, Wheezing, Dullness Cardiovascular: positive: Regular Rhythm, Regular Rate, S1, S2. negative: Edema , JVD, Murmur, Bradycardia, Tachycardia Vascular Pulses: Dorsalis-Pedis (R): 2+, Doralis-Pedis (L): 2+ Gastrointestinal/Abdominal: positive: Normal Bowel Sounds, Flat, Soft. negative : Tender, Organomegaly, Pulsatile Mass, Increased Bowel Sounds, Decreased BS, Distended, Guarding, Rebound, Hernia, Hepatomegaly, Spleenomegaly Lymphatic: negative: Adenopathy, Tenderness Musculoskeletal: positive: Normal Inspection. negative: CVA Tenderness, Decreased Range of Motion Extremity: positive: Normal Capillary Refill, Normal Inspection, Normal Range of Motion, Pelvis Stable. negative: Tender, Pedal Edema, Swelling, Erythema Integumentary: positive: Normal Color, Dry, Warm. negative: Cyanotic, Erythema , Jaundice, Rash Neurologic: positive: development writer II-XII NML intact, Fully Oriented, Alert, Normal Mood/ Affect, Motor Strength 5/5. negative: EOM Palsy, Facial Droop, Sensory Deficit - Medical Decision Making 12/27/17 20:37 Pt to be admitted for further evaluation and care to [facility]. <Navjot Ibrahim - Last Filed: 12/27/17 20:38>
[2017-12-27] MEDS ORDERED: KETOROLAC TROMETHAMINE 60 MG/2 ML VIAL IM ONE (19:42)
[2017-12-27] MEDS ORDERED: METHOCARBAMOL 500 MG TABLET PO ONE (19:42)
[2017-12-27 19:43] LABS: INR 1.07 (0.83-1.09); PROTHROMBIN TIME (PATIENT) 12.1 SEC (9.7-13.0)
[2017-12-27] MEDS ORDERED: KETOROLAC TROMETHAMINE 60 MG/2 ML VIAL ONE (19:46)
[2017-12-27] MEDS ORDERED: METHOCARBAMOL 500 MG TABLET ONE (19:46)
[2017-12-27 19:55] LABS: ALBUMIN 3.9 g/dl (3.4-5.0); ALK PHOS 88 U/L (45-117); ANION GAP 8 (8-16); BILIRUBIN,TOTAL 0.3 mg/dL (0.2-1.0); BLOOD UREA NITROGEN 13 mg/dL (7-18); CALCIUM 8.9 mg/dL (8.5-10.1); CHLORIDE 108 mmol/L (98-107); CO2 28 mmol/L (21-32); CREATININE 0.8 mg/dL (0.55-1.02); GLUCOSE,RANDOM 95 mg/dL (74-106); MAGNESIUM 2.2 mg/dL (1.8-2.4); POTASSIUM 3.3 mmol/L (3.5-5.1); SGOT/AST 24 U/L (15-37); SGPT/ALT 35 U/L (12-78); SODIUM 144 mmol/L (136-145); TOT PROT 7.6 g/dl (6.4-8.2)
[2017-12-27 19:55] LABS: URINE APPEARANCE CLEAR; URINE BILIRUBIN NEGATIVE (<2.0 mg/dL); URINE COLOR YELLOW; URINE GLUCOSE (UA) NEGATIVE (NEGATIVE); URINE KETONE NEGATIVE (NEGATIVE); URINE NITRITE NEGATIVE (NEGATIVE); URINE PROTEIN NEGATIVE (NEGATIVE)
[2017-12-27 19:59] LABS: URINE LEUK ESTERASE 2+ (NEGATIVE)
[2017-12-27 20:00] LABS: EPI CELLS RARE /HPF (FEW); URINE MUCUS FEW
[2017-12-27] MEDS ORDERED: METOPROLOL TARTRATE 25 MG TABLET (FP) PO ONE (20:35)
[2017-12-27] MEDS ORDERED: NITROGLYCERIN 2% OINTMENT - 1GM PACKET TD ONE ×2 (20:35→21:03)
[2017-12-27] MEDS ORDERED: SULFAMETHOXAZOLE/TRIMETHOPRIM 800MG/160MG D.S. TABLET PO ONE (21:01)
[2017-12-27] MEDS ORDERED: METOPROLOL TARTRATE 25 MG TABLET (FP) ONE (21:03)
[2017-12-27] MEDS ORDERED: SULFAMETHOXAZOLE/TRIMETHOPRIM 800MG/160MG D.S. TABLET ONE (21:04)
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
[2017-12-27] MEDS: POTASSIUM CHLORIDE TABS 20 MEQ TABLET.ER (FP) PO SCH (23:01)
[2017-12-27] MEDS: HEPARIN NA (PORCINE) 5,000 UNITS/ML 1ML VIAL SQ SCH (23:01)
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
[2017-12-28] MEDS: HEPARIN NA (PORCINE) 5,000 UNITS/ML 1ML VIAL SQ SCH ×3 (06:32→22:13)
[2017-12-28 06:51] LABS: HEMATOCRIT 39.5 % (32.4-45.2); HEMOGLOBIN 13.5 GM/dL (10.7-15.3); MCH 30.3 pg (25.7-33.7); MCHC 34.3 g/dl (32.0-36.0); MEAN CELL VOLUME 88.3 fl (80-96); PLATELET COUNT 214 K/MM3 (134-434); RBC 4.47 M/mm3 (3.60-5.2); RDW 13.8 % (11.6-15.6)
[2017-12-28 07:20] LABS: CHLORIDE 106 mmol/L (98-107); POTASSIUM 3.6 mmol/L (3.5-5.1); SODIUM 143 mmol/L (136-145)
[2017-12-28 07:26] LABS: ANION GAP 9 (8-16); BLOOD UREA NITROGEN 11 mg/dL (7-18); CALCIUM 8.9 mg/dL (8.5-10.1); CO2 28 mmol/L (21-32); CREATININE 0.7 mg/dL (0.55-1.02); GLUCOSE,RANDOM 86 mg/dL (74-106); MAGNESIUM 2.3 mg/dL (1.8-2.4); PHOSPHOROUS 3.8 mg/dL (2.5-4.9)
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
[2017-12-28] MEDS: CLOPIDOGREL BISULFATE 75 MG TABLET (FP) PO SCH (09:53)
[2017-12-28] MEDS: ASPIRIN COATED 81 MG TABLET.EC PO SCH (09:53)
[2017-12-28] MEDS: metoPROLOL SUCCINATE 25 MG TAB.SR.24H (FP) PO SCH (09:53)
[2017-12-28] MEDS: POTASSIUM CHLORIDE TABS 20 MEQ TABLET.ER (FP) PO SCH ×2 (09:53→22:13)
[2017-12-28] MEDS: PANTOPRAZOLE 40 MG TABLET (FP) PO SCH (09:53)
[2017-12-28] MEDS ORDERED: DOCUSATE SODIUM 100 MG CAPSULE (FP) PO PRN (10:55)
[2017-12-28] MEDS ORDERED: CYCLOBENZAPRINE HCL 5 MG TABLET PO SCH (11:00)
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
[2017-12-28 12:46] LABS: PLATELET ESTIMATE ADEQUATE
--- NOTE | 2017-12-28 12:57 | ECHO ---
Name: CHANDRA TORRES Exam:Adult Echocardiogram Study Date: 12/28/2017 10:09 AM Age: 57 yrs Reason For Study: LV Function Height: 61 in Weight: 160 lb BSA: 1.7 m2 MMode/2D Measurements & Calculations IVSd: 1.3 cm Ao root diam: 2.6 cm LVIDd: 4.0 cm LA dimension: 3.0 cm LVIDs: 2.5 cm LVPWd: 1.0 cm EDV(Teich): 69.3 ml ESV(Teich): 22.9 ml Doppler Measurements & Calculations MV E max paco: 59.2 cm/sec Med Peak E' Paco: 5.5 cm/sec MV A max paco: 90.7 cm/sec Med E/e': 10.7 MV E/A: 0.65 Lat Peak E' Paco: 9.9 cm/sec MV dec time: 0.28 sec Lat E/e': 6.0 Procedure The study was technically difficult with many images being suboptimal in quality. Left Ventricle There is mild concentric left ventricular hypertrophy. The left ventricle is not well visualized. The left ventricular ejection fraction is normal. E/A reversal consistent with but not diagnostic of poor LV compliance. Regional wall motion abnormalities cannot be excluded due to limited visualization. Right Ventricle The right ventricle is not well visualized. Atria Normal left and right atrial size and function. Mitral Valve The mitral valve is not well visualized. There is no mitral valve stenosis. There is trace mitral regurgitation. Tricuspid Valve The tricuspid valve is not well visualized. There is no tricuspid stenosis. There was insufficient TR detected to calculate RV systolic pressure. Aortic Valve The aortic valve is not well visualized. No hemodynamically significant valvular aortic stenosis. No aortic regurgitation is present. Pulmonic Valve The pulmonic valve is not well visualized. Great Vessels The aortic root is normal size. Pericardium/Pleura There is no pericardial effusion. Interpretation Summary The study was technically difficult with many images being suboptimal in quality. There is mild concentric left ventricular hypertrophy. The left ventricular ejection fraction is normal. Regional wall motion abnormalities cannot be excluded due to limited visualization. The left ventricle is not well visualized. E/A reversal consistent with but not diagnostic of poor LV compliance There is trace mitral regurgitation. There was insufficient TR detected to calculate RV systolic pressure. MD Ray Damian 12/28/2017 12:57 PM
--- NOTE | 2017-12-28 13:20 | EKG ---
Test Reason : Blood Pressure : / mmHG Vent. Rate : 071 BPM Atrial Rate : 071 BPM P-R Int : 150 ms QRS Dur : 102 ms QT Int : 394 ms P-R-T Axes : 030 -32 000 degrees QTc Int : 428 ms NORMAL SINUS RHYTHM LEFT AXIS DEVIATION POSSIBLE INFERIOR INFARCT (CITED ON OR BEFORE 11-NOV-2016) POSSIBLE ANTERIOR INFARCT (CITED ON OR BEFORE 17-JUL-2015) ABNORMAL ECG WHEN COMPARED WITH ECG OF 14-JUN-2017 18:34, QUESTIONABLE CHANGE IN INITIAL FORCES OF ANTEROLATERAL LEADS QUESTIONABLE CHANGE IN INITIAL FORCES OF INFERIOR LEADS NONSPECIFIC T WAVE ABNORMALITY NO LONGER EVIDENT IN ANTERIOR LEADS Confirmed by DAT HUBBARD, ISIDRO ([id number]) on 12/28/2017 1:19:53 PM Referred By: Confirmed By:ISIDRO DAUGHERTY MD
[2017-12-28] MEDS: GABAPENTIN 100 MG CAPSULE (FP) PO SCH ×2 (14:03→22:13)
--- NOTE | 2017-12-28 15:02 | PN ---
Teaching Attending Note Name of Resident: Steffany Davis ATTENDING PHYSICIAN STATEMENT I saw and evaluated the patient. I reviewed the resident's note and discussed the case with the resident. I agree with the resident's findings and plan as documented with exceptions below. SUBJECTIVE: Patient seen and examined, Still with left neck pain radiating down left arm associated with tingling in left fingers. No chest pain, dyspnea. Denies pain with arm or neck movements. OBJECTIVE: Vital Signs Period Temp Pulse Resp BP Sys/Branch Pulse Ox Last 24 Hr 97.6 F-98.4 F 71-80 18-20 118-142/60-95 98-100 Intake & Output 12/25/17 12/26/17 12/27/17 12/28/17 23:59 23:59 23:59 23:59 Intake Total 4 Balance 4 Weight 160 lb 160 lb General: sitting in bed in no acute distress Neck: mild tenderness and spasm in paraspinal region, mild tenderness with spasm left neck. no point vertebral tenderness noted Neuro: AAOX3, power power 5/5, sensation symmtric and intact to light touch bilateral upper extremity, facial symmetry Chest: CTAB, no rales or wheezing Abdomen: soft, NT, ND Extremities: no edema Home Medications Medication Instructions Recorded Aspirin [Aspirin EC] 81 mg PO DAILY 12/15/17 Atorvastatin Ca [Lipitor] 20 mg PO DAILY 12/15/17 Clopidogrel Bisulfate [Plavix] 75 mg PO DAILY 12/15/17 Tramadol HCl 50 mg PO QID PRN #12 tablet MDD 4 12/15/17 Active Medications Aspirin (Ecotrin -) 81 mg PO DAILY [facility] Last Admin: 12/28/17 09:53 Dose: 81 mg Atorvastatin Calcium (Lipitor -) 80 mg PO HS [facility] Clopidogrel Bisulfate (Plavix -) 75 mg PO DAILY [facility] Last Admin: 12/28/17 09:53 Dose: 75 mg Cyclobenzaprine HCl (Flexeril -) 5 mg PO BID [facility] Docusate Sodium (Colace -) 100 mg PO BID PRN PRN Reason: CONSTIPATION Gabapentin (Neurontin -) 100 mg PO TID [facility] Last Admin: 12/28/17 14:03 Dose: 100 mg Heparin Sodium (Porcine) (Heparin -) 5,000 unit SQ TID [facility] Last Admin: 12/28/17 14:03 Dose: 5,000 unit Metoprolol Succinate (Toprol Xl -) 25 mg PO DAILY [facility] Last Admin: 12/28/17 09:53 Dose: 25 mg Pantoprazole Sodium (Protonix -) 40 mg PO DAILY [facility] Last Admin: 12/28/17 09:53 Dose: 40 mg Potassium Chloride (K-Dur -) 40 meq PO BID [facility] Stop: 12/28/17 22:01 Last Admin: 12/28/17 09:53 Dose: 40 meq Laboratory Results - last 24 hr 12/27/17 12/27/17 12/27/17 19:21 19:21 19:21 WBC 3.8 L Corrected WBC (auto) RBC 4.77 Hgb 14.2 Hct 42.1 MCV 88.3 MCH 29.7 MCHC 33.6 RDW 13.9 Plt Count 253 MPV 7.8 Absolute Neuts (auto) 1.9 Total Counted Neutrophils % 48.7 D Neutrophils % (Manual) Lymphocytes % 41.3 H D Lymphocytes % (Manual) Monocytes % 6.6 Monocytes % (Manual) Eosinophils % 2.2 D Eosinophils % (Manual) Basophils % 1.2 D Nucleated RBC % 0 Platelet Estimate Platelet Comment PT with INR 12.10 INR 1.07 Sodium 144 Potassium 3.3 L Chloride 108 H Carbon Dioxide 28 Anion Gap 8 BUN 13 Creatinine 0.8 Creat Clearance w eGFR > 60 Random Glucose 95 Calcium 8.9 Phosphorus Magnesium 2.2 Total Bilirubin 0.3 AST 24 ALT 35 Alkaline Phosphatase 88 Creatine Kinase Creatine Kinase Index CK-MB (CK-2) Troponin I Total Protein 7.6 Albumin 3.9 Urine Color Urine Appearance Urine pH Ur Specific Thor Urine Protein Urine Glucose (UA) Urine Ketones Urine Blood Urine Nitrite Urine Bilirubin Urine Urobilinogen Ur Leukocyte Esterase Urine WBC (Auto) Urine RBC (Auto) Ur Epithelial Cells Urine Mucus 12/27/17 12/27/17 12/28/17 19:21 19:27 01:00 WBC Corrected WBC (auto) RBC Hgb Hct MCV MCH MCHC RDW Plt Count MPV Absolute Neuts (auto) Total Counted Neutrophils % Neutrophils % (Manual) Lymphocytes % Lymphocytes % (Manual) Monocytes % Monocytes % (Manual) Eosinophils % Eosinophils % (Manual) Basophils % Nucleated RBC % Platelet Estimate Platelet Comment PT with INR INR Sodium Potassium Chloride Carbon Dioxide Anion Gap BUN Creatinine Creat Clearance w eGFR Random Glucose Calcium Phosphorus Magnesium Total Bilirubin AST ALT Alkaline Phosphatase Creatine Kinase 337 H Creatine Kinase Index 1.2 CK-MB (CK-2) 4.28 H Troponin I 0.09 H 0.12 H Total Protein Albumin Urine Color Yellow Urine Appearance Clear Urine pH 5.0 Ur Specific Thor 1.025 Urine Protein Negative Urine Glucose (UA) Negative Urine Ketones Negative Urine Blood 3+ H Urine Nitrite Negative Urine Bilirubin Negative Urine Urobilinogen 2.0 H Ur Leukocyte Esterase 2+ H Urine WBC (Auto) 30 Urine RBC (Auto) 61 Ur Epithelial Cells Rare Urine Mucus Few 12/28/17 12/28/17 12/28/17 05:30 05:30 05:30 WBC 3.0 L Corrected WBC (auto) RBC 4.47 Hgb 13.5 Hct 39.5 MCV 88.3 MCH 30.3 MCHC 34.3 RDW 13.8 Plt Count 214 MPV 8.0 Absolute Neuts (auto) Total Counted 100 Neutrophils % Neutrophils % (Manual) 42.0 L Lymphocytes % Lymphocytes % (Manual) 48.0 H Monocytes % Monocytes % (Manual) 8 Eosinophils % Eosinophils % (Manual) 2.0 Basophils % Nucleated RBC % Platelet Estimate Adequate Platelet Comment PT with INR INR Sodium 143 Potassium 3.6 Chloride 106 Carbon Dioxide 28 Anion Gap 9 BUN 11 Creatinine 0.7 Creat Clearance w eGFR > 60 Random Glucose 86 Calcium 8.9 Phosphorus 3.8 Magnesium 2.3 Total Bilirubin AST ALT Alkaline Phosphatase Creatine Kinase Creatine Kinase Index CK-MB (CK-2) Troponin I 0.10 H Total Protein Albumin Urine Color Urine Appearance Urine pH Ur Specific Thor Urine Protein Urine Glucose (UA) Urine Ketones Urine Blood Urine Nitrite Urine Bilirubin Urine Urobilinogen Ur Leukocyte Esterase Urine WBC (Auto) Urine RBC (Auto) Ur Epithelial Cells Urine Mucus 12/28/17 12/28/17 12/28/17 08:35 08:35 08:35 WBC Cancelled Corrected WBC (auto) Cancelled RBC Cancelled Hgb Cancelled Hct Cancelled MCV Cancelled MCH Cancelled MCHC Cancelled RDW Cancelled Plt Count Cancelled MPV Cancelled Absolute Neuts (auto) Cancelled Total Counted Neutrophils % Cancelled Neutrophils % (Manual) Lymphocytes % Cancelled Lymphocytes % (Manual) Monocytes % Cancelled Monocytes % (Manual) Eosinophils % Cancelled Eosinophils % (Manual) Basophils % Cancelled Nucleated RBC % Cancelled Platelet Estimate Cancelled Platelet Comment Cancelled PT with INR INR Sodium Potassium Chloride Carbon Dioxide Anion Gap BUN Creatinine Creat Clearance w eGFR Random Glucose Calcium Phosphorus Magnesium Total Bilirubin AST ALT Alkaline Phosphatase Creatine Kinase 256 H Creatine Kinase Index 1.3 CK-MB (CK-2) 3.43 Cancelled Troponin I Total Protein Albumin Urine Color Urine Appearance Urine pH Ur Specific Thor Urine Protein Urine Glucose (UA) Urine Ketones Urine Blood Urine Nitrite Urine Bilirubin Urine Urobilinogen Ur Leukocyte Esterase Urine WBC (Auto) Urine RBC (Auto) Ur Epithelial Cells Urine Mucus C-spine/Neck CT results noted. 2D echo results ASSESSMENT AND PLAN: 57 yof with PMhx of sarcoidosis, Asthma, CAD s/p LCx PCI in 10/2016, cervical radiculopathy, non compliant with her medications, comes with neck pain radiating down left arm with tingling/numbness, for 1 week, intermittent. -Cervical radiculopathy -Neck pain, likely from above, low suspicion for ACS currently -Elevated troponin, ?deman -Sarcoidosis -Asthma -Hypokalemia Plan: Cardiology input appreciated. 2D echo noted. Continue ASA/plavix/statin/ metoprolol, compliance stressed with patient. Neurosurgery input appreciated. MRI C-spine. Start neurontin/flexeril. PT eval. DVTPPx Dispo pending clinical improvement, in 24 hours if MRI non concerning and no new cardiac concerns. Plan discussed with patient in detail, all questions answered.
[2017-12-28] MEDS ORDERED: ATORVASTATIN CA 80 MG TABLET (FP) PO SCH (22:00)
[2017-12-28] MEDS: CYCLOBENZAPRINE HCL 10 MG TABLET (FP) PO SCH (22:13)
--- NOTE | 2017-12-28 22:44 | PN ---
Physical Exam: SUBJECTIVE: Patient seen and examined this morning at bedside. Continues to feel the same neck pain. Denies fevers, chills, chest pain, SOB, nausea, vomiting. OBJECTIVE: Vital Signs Period Temp Pulse Resp BP Sys/Branch Pulse Ox Last 24 Hr 97.6 F-98.8 F 71-77 18-20 109-124/60-79 99-100 GENERAL: The patient is awake, alert, and fully oriented, in no acute distress. NECK: Left side tender to palpation, full range of motion LUNGS: Breath sounds equal, clear to auscultation bilaterally, no wheezes, no crackles HEART: Regular rate and rhythm, S1, S2 without murmur, rub or gallop. ABDOMEN: Soft, nontender, nondistended, normoactive bowel sounds EXTREMITIES: 2+ pulses, no edema. Upper extremity ROM intact b/l NEUROLOGICAL: C5-T1 gross sensation intact b/l, Upper extremity muscle strength 5/5 b/l Laboratory Results - last 24 hr 12/28/17 12/28/17 12/28/17 01:00 05:30 05:30 WBC 3.0 L Corrected WBC (auto) RBC 4.47 Hgb 13.5 Hct 39.5 MCV 88.3 MCH 30.3 MCHC 34.3 RDW 13.8 Plt Count 214 MPV 8.0 Absolute Neuts (auto) Total Counted 100 Neutrophils % Neutrophils % (Manual) 42.0 L Lymphocytes % Lymphocytes % (Manual) 48.0 H Monocytes % Monocytes % (Manual) 8 Eosinophils % Eosinophils % (Manual) 2.0 Basophils % Nucleated RBC % Platelet Estimate Adequate Platelet Comment Sodium 143 Potassium 3.6 Chloride 106 Carbon Dioxide 28 Anion Gap 9 BUN 11 Creatinine 0.7 Creat Clearance w eGFR > 60 Random Glucose 86 Calcium 8.9 Phosphorus 3.8 Magnesium 2.3 Creatine Kinase Creatine Kinase Index CK-MB (CK-2) Troponin I 0.12 H 12/28/17 12/28/17 12/28/17 05:30 08:35 08:35 WBC Cancelled Corrected WBC (auto) Cancelled RBC Cancelled Hgb Cancelled Hct Cancelled MCV Cancelled MCH Cancelled MCHC Cancelled RDW Cancelled Plt Count Cancelled MPV Cancelled Absolute Neuts (auto) Cancelled Total Counted Neutrophils % Cancelled Neutrophils % (Manual) Lymphocytes % Cancelled Lymphocytes % (Manual) Monocytes % Cancelled Monocytes % (Manual) Eosinophils % Cancelled Eosinophils % (Manual) Basophils % Cancelled Nucleated RBC % Cancelled Platelet Estimate Cancelled Platelet Comment Cancelled Sodium Potassium Chloride Carbon Dioxide Anion Gap BUN Creatinine Creat Clearance w eGFR Random Glucose Calcium Phosphorus Magnesium Creatine Kinase 256 H Creatine Kinase Index 1.3 CK-MB (CK-2) 3.43 Troponin I 0.10 H 12/28/17 08:35 WBC Corrected WBC (auto) RBC Hgb Hct MCV MCH MCHC RDW Plt Count MPV Absolute Neuts (auto) Total Counted Neutrophils % Neutrophils % (Manual) Lymphocytes % Lymphocytes % (Manual) Monocytes % Monocytes % (Manual) Eosinophils % Eosinophils % (Manual) Basophils % Nucleated RBC % Platelet Estimate Platelet Comment Sodium Potassium Chloride Carbon Dioxide Anion Gap BUN Creatinine Creat Clearance w eGFR Random Glucose Calcium Phosphorus Magnesium Creatine Kinase Creatine Kinase Index CK-MB (CK-2) Cancelled Troponin I Active Medications Aspirin (Ecotrin -) 81 mg PO DAILY [facility] Last Admin: 12/28/17 09:53 Dose: 81 mg Atorvastatin Calcium (Lipitor -) 80 mg PO HS [facility] Last Admin: 12/28/17 22:13 Dose: 80 mg Clopidogrel Bisulfate (Plavix -) 75 mg PO DAILY [facility] Last Admin: 12/28/17 09:53 Dose: 75 mg Cyclobenzaprine HCl (Flexeril -) 5 mg PO BID [facility] Last Admin: 12/28/17 22:13 Dose: 5 mg Docusate Sodium (Colace -) 100 mg PO BID PRN PRN Reason: CONSTIPATION Gabapentin (Neurontin -) 100 mg PO TID [facility] Last Admin: 12/28/17 22:13 Dose: 100 mg Heparin Sodium (Porcine) (Heparin -) 5,000 unit SQ TID [facility] Last Admin: 12/28/17 22:13 Dose: 5,000 unit Metoprolol Succinate (Toprol Xl -) 25 mg PO DAILY [facility] Last Admin: 12/28/17 09:53 Dose: 25 mg Pantoprazole Sodium (Protonix -) 40 mg PO DAILY [facility] Last Admin: 12/28/17 09:53 Dose: 40 mg IMAGING: - CXR: No acute chest pathology. No significant change since prior study. -Kidney/Renal US: Both kidneys appear unremarkable. Partially distended urinary bladder without wall thickening. Bilateral ureteral jets were identified. No postvoid urine residue is present. - CT scan of the left upper extremity: Moderate osteoarthritic changes involving the left acromioclavicular joint. No gross acute fracture or dislocation identified. - CT scan of the neck: No discrete mass or enlarged lymph nodes are identified. Multilevel degenerative disc disease in the cervical spine with anterior and posterior spur formation as well as bilateral uncovertebral hypertrophy, as described above impinging both C5 nerve roots at C4-C5 level, right more than left as well as impinging both C6 nerve roots at the C5-C6 level and probably slightly impinging left C7 nerve root at C6-C7 level. ASSESSMENT/PLAN: 57 y/o female with PMHx Sarcoidosis and AK s/p stent X1 placed in observation after presenting with left neck pain and numbness, Found to have elevated cardiac markers, no acute ECG changes, and microscopic hematuria of unknown cause. 1. Cervical Radiculopathy - C5-T1 gross sensation and muscle strength intact on exam however some left sided neck pain - Likely caused by muscle spasms - R/O nerve root impingement from cervical spinal stenosis, C-Spine MRI pending official read - CT scan of the left upper extremity: Moderate osteoarthritic changes involving the left acromioclavicular joint. No gross acute fracture or dislocation identified. - CT scan of the neck: Multilevel degenerative disc disease in the cervical spine, impinging C5, C6, C7 nerve roots - Neurosurgery (Dr. Schmitt) Consulted, appreciate rec's, Started on Neurontin 100mg TID - PT Evaluation 2. Troponemia - Possibly be due to demand ischemia and Medication noncompliance - Denies chest pain, No significant ECG changes - Troponins 0.05 -> 0.09 -> 0.12 -> 0.10 - Cardiology (Dr. Lundberg) consulted, appreciate rec's, will check TSH, lipid panel , echo - Cardiac MRI and ETT as outpatient - Continue ASA 81mg DAILY - Continue Plavix 75 mg PO DAILY - Continue Metoprolol Succinate 25 mg PO DAILY - Continue Atorvastatin 80 mg PO HS 3. Microscopic Hematuria - UA: 2+ LE, 30 WBC's, 3+ blood, 61 RBC's, unclear cause at this time - Kidney/Renal US: Both kidneys appear unremarkable. Partially distended urinary bladder - Consider repeat UA, Currently Asymptomatic - Given 1 dose Bactrim in ED 4. PPx - DVT: Heparin 5000 units SQ TID 5. FEN - PO Fluids - Check BMP, replete as needed - Cardiac diet Dispo: placed in obs with cardiac monitoring Visit type - Emergency Visit Emergency Visit: Yes ED Registration Date: 12/27/17 Care time: The patient presented to the Emergency Department on the above date and was hospitalized for further evaluation of their emergent condition. - New Patient This patient is new to me today: Yes Date on this admission: 12/29/17 - Critical Care Critical Care patient: No
[2017-12-28 23:28] LABS: URINE APPEARANCE CLEAR; URINE BILIRUBIN NEGATIVE (<2.0 mg/dL); URINE COLOR LTYELLOW; URINE GLUCOSE (UA) NEGATIVE (NEGATIVE); URINE KETONE NEGATIVE (NEGATIVE); URINE LEUK ESTERASE 1+ (NEGATIVE); URINE NITRITE NEGATIVE (NEGATIVE); URINE PROTEIN NEGATIVE (NEGATIVE); URINE UROBILINOGEN NEGATIVE mg/dL (0.2-1.0)
[2017-12-28 23:31] LABS: EPI CELLS RARE /HPF (FEW); URINE BACTERIA RARE /hpf (NONE SEEN); URINE MUCUS RARE
[2017-12-29] MEDS: HEPARIN NA (PORCINE) 5,000 UNITS/ML 1ML VIAL SQ SCH ×2 (05:43→14:09)
[2017-12-29] MEDS: GABAPENTIN 100 MG CAPSULE (FP) PO SCH (05:43)
[2017-12-29 06:27] LABS: BASO % 1.1 % (0-2.0); EOS % 2.2 % (0-4.5); HEMATOCRIT 41.2 % (32.4-45.2); HEMOGLOBIN 13.9 GM/dL (10.7-15.3); LYMPH % 42.9 % (8-40); MCH 29.9 pg (25.7-33.7); MCHC 33.7 g/dl (32.0-36.0); MEAN CELL VOLUME 88.7 fl (80-96); MEAN PLT VOLUME 7.8 fl (7.5-11.1); MONO % 9.3 % (3.8-10.2); NEUT % 44.5 % (42.8-82.8); PLATELET COUNT 227 K/MM3 (134-434); RBC 4.64 M/mm3 (3.60-5.2); RDW 13.6 % (11.6-15.6)
[2017-12-29 07:07] LABS: CHLORIDE 106 mmol/L (98-107); POTASSIUM 4.5 mmol/L (3.5-5.1); SODIUM 139 mmol/L (136-145)
[2017-12-29 07:24] LABS: ALBUMIN 3.4 g/dl (3.4-5.0); ALK PHOS 75 U/L (45-117); ANION GAP 5 (8-16); BILIRUBIN,TOTAL 0.3 mg/dL (0.2-1.0); BLOOD UREA NITROGEN 15 mg/dL (7-18); CALCIUM 8.8 mg/dL (8.5-10.1); CHOLESTEROL 134 mg/dL (50-200); CO2 28 mmol/L (21-32); CREATININE 0.8 mg/dL (0.55-1.02); GLUCOSE,RANDOM 97 mg/dL (74-106); HDL CHOLESTEROL 49 mg/dL (40-60); MAGNESIUM 2.5 mg/dL (1.8-2.4); PHOSPHOROUS 3.9 mg/dL (2.5-4.9); SGOT/AST 24 U/L (15-37); SGPT/ALT 34 U/L (12-78); TRIGLYCERIDES 64 mg/dL (35-160)
--- NOTE | 2017-12-29 08:15 | PN ---
Teaching Attending Note Name of Resident: Steffany Davis ATTENDING PHYSICIAN STATEMENT I saw and evaluated the patient. I reviewed the resident's note and discussed the case with the resident. I agree with the resident's findings and plan as documented with exceptions below. SUBJECTIVE: Patient seen and examined. still with neck pain/spasms, feels better, no new complaints. OBJECTIVE: Vital Signs Period Temp Pulse Resp BP Sys/Branch Pulse Ox Last 24 Hr 97.6 F-98.8 F 59-77 16-19 99-118/58-79 95-100 Intake & Output 12/26/17 12/27/17 12/28/17 12/29/17 23:59 23:59 23:59 23:59 Intake Total 814 100 Balance 814 100 Weight 160 lb 160 lb General: lying in bed in no acute distress Neck: no point tenderness, paraspinal spasm, Extremities: LUE ROM full, sensation intact and symmetric to light touch, power 5/5 Laboratory Results - last 24 hr 12/28/17 12/28/17 12/28/17 05:30 08:35 08:35 WBC Cancelled Corrected WBC (auto) Cancelled RBC Cancelled Hgb Cancelled Hct Cancelled MCV Cancelled MCH Cancelled MCHC Cancelled RDW Cancelled Plt Count Cancelled MPV Cancelled Absolute Neuts (auto) Cancelled Total Counted 100 Neutrophils % Cancelled Neutrophils % (Manual) 42.0 L Lymphocytes % Cancelled Lymphocytes % (Manual) 48.0 H Monocytes % Cancelled Monocytes % (Manual) 8 Eosinophils % Cancelled Eosinophils % (Manual) 2.0 Basophils % Cancelled Nucleated RBC % Cancelled Platelet Estimate Adequate Cancelled Platelet Comment Cancelled Sodium Potassium Chloride Carbon Dioxide Anion Gap BUN Creatinine Creat Clearance w eGFR Random Glucose Calcium Phosphorus Magnesium Total Bilirubin AST ALT Alkaline Phosphatase Creatine Kinase 256 H Creatine Kinase Index 1.3 CK-MB (CK-2) 3.43 Total Protein Albumin Triglycerides Cholesterol Total LDL Cholesterol HDL Cholesterol TSH Urine Color Urine Appearance Urine pH Ur Specific [place] Urine Protein Urine Glucose (UA) Urine Ketones Urine Blood Urine Nitrite Urine Bilirubin Urine Urobilinogen Ur Leukocyte Esterase Urine WBC (Auto) Urine RBC (Auto) Ur Epithelial Cells Urine Bacteria Urine Mucus 12/28/17 12/28/17 12/29/17 08:35 23:00 05:30 WBC Corrected WBC (auto) RBC Hgb Hct MCV MCH MCHC RDW Plt Count MPV Absolute Neuts (auto) Total Counted Neutrophils % Neutrophils % (Manual) Lymphocytes % Lymphocytes % (Manual) Monocytes % Monocytes % (Manual) Eosinophils % Eosinophils % (Manual) Basophils % Nucleated RBC % Platelet Estimate Platelet Comment Sodium 139 Potassium 4.5 Chloride 106 Carbon Dioxide 28 Anion Gap 5 L BUN 15 Creatinine 0.8 Creat Clearance w eGFR > 60 Random Glucose 97 Calcium 8.8 Phosphorus 3.9 Magnesium 2.5 H Total Bilirubin 0.3 AST 24 ALT 34 Alkaline Phosphatase 75 D Creatine Kinase Creatine Kinase Index CK-MB (CK-2) Cancelled Total Protein 7.0 Albumin 3.4 Triglycerides 64 Cholesterol 134 Total LDL Cholesterol 81 HDL Cholesterol 49 TSH 0.58 Urine Color Ltyellow Urine Appearance Clear Urine pH 6.0 Ur Specific [place] 1.017 Urine Protein Negative Urine Glucose (UA) Negative Urine Ketones Negative Urine Blood 2+ H Urine Nitrite Negative Urine Bilirubin Negative Urine Urobilinogen Negative Ur Leukocyte Esterase 1+ H Urine WBC (Auto) 26 Urine RBC (Auto) 19 Ur Epithelial Cells Rare Urine Bacteria Rare Urine Mucus Rare 12/29/17 05:30 WBC 3.0 L Corrected WBC (auto) RBC 4.64 Hgb 13.9 Hct 41.2 MCV 88.7 MCH 29.9 MCHC 33.7 RDW 13.6 Plt Count 227 MPV 7.8 Absolute Neuts (auto) 1.3 Total Counted Neutrophils % 44.5 Neutrophils % (Manual) Lymphocytes % 42.9 H Lymphocytes % (Manual) Monocytes % 9.3 Monocytes % (Manual) Eosinophils % 2.2 Eosinophils % (Manual) Basophils % 1.1 Nucleated RBC % 0 Platelet Estimate Platelet Comment Sodium Potassium Chloride Carbon Dioxide Anion Gap BUN Creatinine Creat Clearance w eGFR Random Glucose Calcium Phosphorus Magnesium Total Bilirubin AST ALT Alkaline Phosphatase Creatine Kinase Creatine Kinase Index CK-MB (CK-2) Total Protein Albumin Triglycerides Cholesterol Total LDL Cholesterol HDL Cholesterol TSH Urine Color Urine Appearance Urine pH Ur Specific [place] Urine Protein Urine Glucose (UA) Urine Ketones Urine Blood Urine Nitrite Urine Bilirubin Urine Urobilinogen Ur Leukocyte Esterase Urine WBC (Auto) Urine RBC (Auto) Ur Epithelial Cells Urine Bacteria Urine Mucus MRI C-spine results noted ASSESSMENT AND PLAN: 57 yof with PMhx of sarcoidosis, Asthma, CAD s/p LCx PCI in 10/2016, cervical radiculopathy, non compliant with her medications, comes with neck pain radiating down left arm with tingling/numbness, for 1 week, intermittent. -Cervical radiculopathy -Neck pain, likely from above, low suspicion for ACS currently -Elevated troponin, ?demand -Sarcoidosis -Asthma -Hypokalemia Plan: Cardiology input appreciated. 2D echo noted. Continue ASA/plavix/statin/ metoprolol, compliance stressed with patient. Neurosurgery input appreciated. MRI C-spine noted. Neurontin increased. Flexeril prn. PT eval DVTPPx patient advised to avoid passive neck movements/manipulation Dispo home with home PT, and outpatient neurosurgery follow up. Plan discussed with patient in detail, all questions answered.
--- NOTE | 2017-12-29 09:46 | PN ---
Progress Note, Physician History of Present Illness: Continued left neck pain and numbness to left shoulder, c-spine MRI report reviewed. She denies chest pain or dyspnea. - Current Medication List Current Medications: Active Medications Aspirin (Ecotrin -) 81 mg PO DAILY [facility] Last Admin: 12/28/17 09:53 Dose: 81 mg Atorvastatin Calcium (Lipitor -) 80 mg PO HS [facility] Last Admin: 12/28/17 22:13 Dose: 80 mg Clopidogrel Bisulfate (Plavix -) 75 mg PO DAILY [facility] Last Admin: 12/28/17 09:53 Dose: 75 mg Cyclobenzaprine HCl (Flexeril -) 5 mg PO BID [facility] Last Admin: 12/28/17 22:13 Dose: 5 mg Docusate Sodium (Colace -) 100 mg PO BID PRN PRN Reason: CONSTIPATION Gabapentin (Neurontin -) 100 mg PO TID [facility] Last Admin: 12/29/17 05:43 Dose: 100 mg Heparin Sodium (Porcine) (Heparin -) 5,000 unit SQ TID [facility] Last Admin: 12/29/17 05:43 Dose: 5,000 unit Metoprolol Succinate (Toprol Xl -) 25 mg PO DAILY [facility] Last Admin: 12/28/17 09:53 Dose: 25 mg Pantoprazole Sodium (Protonix -) 40 mg PO DAILY [facility] Last Admin: 12/28/17 09:53 Dose: 40 mg - Objective Vital Signs: Vital Signs Temperature 98.3 F 12/29/17 05:57 Pulse Rate 69 12/29/17 05:57 Respiratory Rate 16 12/29/17 05:57 Blood Pressure 112/58 12/29/17 05:57 O2 Sat by Pulse Oximetry (%) 95 12/28/17 23:00 Constitutional: Yes: No Distress, Calm Neck: Yes: Supple Cardiovascular: Yes: Regular Rate and Rhythm Respiratory: Yes: Regular, CTA Bilaterally Gastrointestinal: Yes: Normal Bowel Sounds, Soft Edema: No Labs: CBC, BMP 12/29/17 05:30 12/29/17 05:30 INR, PTT INR 1.07 (0.83-1.09) 12/27/17 19:21 Problem List - Problems (1) Coronary artery disease Code(s): I25.10 - ATHSCL HEART DISEASE OF [place] CORONARY ARTERY W/O ANG PCTRS Qualifiers: Coronary Disease-Associated Artery/Lesion type: [place] artery [place] vs. transplanted heart: [place] heart Associated angina: without angina Qualified Code(s): I25.10 - Atherosclerotic heart disease of [place] coronary artery without angina pectoris (2) Old inferoposterior myocardial infarction Code(s): I25.2 - OLD MYOCARDIAL INFARCTION (3) History of coronary artery stent placement Code(s): Z95.5 - PRESENCE OF CORONARY ANGIOPLASTY IMPLANT AND GRAFT (4) Left arm numbness Code(s): R20.0 - ANESTHESIA OF SKIN (5) Cervical radiculopathy Code(s): M54.12 - RADICULOPATHY, CERVICAL REGION (6) Demand ischemia Code(s): I24.8 - OTHER FORMS OF ACUTE ISCHEMIC HEART DISEASE Assessment/Plan 12/28/2017 Mild cLVH, normal LV fxn, normal atrial sizes, tr MR 01/15/2016 Normal biventricular size and fxn, tr-mild TR 11/11/2016 LHC at [facility] 100% prox LCx post BHAVESH 2.75x18, LVEF 40% 12/28/2017 cspine MRI C5-6 disc protrusion 1. Cervical spondylosis/DDD/stenosis with L C5-6 radiculopathy 2. CAD s/p HI, s/p BHAVESH LCx-OM 11/11/2016 with demand ischemia 3. Sarcoidosis 4. Asthma P:1. Trops have peaked, lipids and TSH reviewed 2. Continue Neurontin, NSG f/u 3. Eventual cardiac MRI as outpatient to r/o cardiac involvement of sarcoidosis , ETT-myoview r/o ischemia 4. ASA 81 qd, Plavix 75 qd, Lipitor 20 qd, Toprol XL 25 qd 5. Emphasize importance of compliance
[2017-12-29] MEDS: CYCLOBENZAPRINE HCL 10 MG TABLET (FP) PO SCH (10:16)
[2017-12-29] MEDS: metoPROLOL SUCCINATE 25 MG TAB.SR.24H (FP) PO SCH (10:17)
[2017-12-29] MEDS: PANTOPRAZOLE 40 MG TABLET (FP) PO SCH (10:17)
[2017-12-29] MEDS: CLOPIDOGREL BISULFATE 75 MG TABLET (FP) PO SCH (10:17)
[2017-12-29] MEDS: ASPIRIN COATED 81 MG TABLET.EC PO SCH (10:17)
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
[2017-12-29] MEDS ORDERED: POLYETHYLENE GLYCOL 3350 119 GM BTL PO SCH (11:15)
[2017-12-29] MEDS ORDERED: GABAPENTIN 300 MG CAPSULE (FP) PO SCH (14:00)
[2017-12-29 15:25] VITALS: BP 114/66; PULSE 74; TEMP 97.6
--- NOTE | 2017-12-29 18:01 | DS ---
Physical Exam: SUBJECTIVE: Patient seen and examined this morning at bedside. Neck pain and numbness have improved and occur less frequently. Denies fevers, chills, chest pain, SOB, nausea, vomiting, diarrhea, constipation. No overnight acute events as per nursing. OBJECTIVE: Vital Signs Period Temp Pulse Resp BP Sys/Branch Pulse Ox Last 24 Hr 97.6 F-98.5 F 59-76 16-18 99-120/58-71 95-98 PHYSICAL EXAM GENERAL: The patient is awake, alert, and fully oriented, in no acute distress. NECK: Left side tenderness to palpation improved, full range of motion LUNGS: Breath sounds equal, clear to auscultation bilaterally, no wheezes, no crackles HEART: Regular rate and rhythm, S1, S2 without murmur. ABDOMEN: Soft, nontender, nondistended, normoactive bowel sounds EXTREMITIES: 2+ pulses, no edema. Upper extremity ROM intact b/l NEUROLOGICAL: C5-T1 gross sensation intact b/l, Upper extremity muscle strength 5/5 b/l LABS Laboratory Results - last 24 hr 12/28/17 12/29/17 12/29/17 23:00 05:30 05:30 WBC 3.0 L RBC 4.64 Hgb 13.9 Hct 41.2 MCV 88.7 MCH 29.9 MCHC 33.7 RDW 13.6 Plt Count 227 MPV 7.8 Absolute Neuts (auto) 1.3 Neutrophils % 44.5 Lymphocytes % 42.9 H Monocytes % 9.3 Eosinophils % 2.2 Basophils % 1.1 Nucleated RBC % 0 Sodium 139 Potassium 4.5 Chloride 106 Carbon Dioxide 28 Anion Gap 5 L BUN 15 Creatinine 0.8 Creat Clearance w eGFR > 60 Random Glucose 97 Calcium 8.8 Phosphorus 3.9 Magnesium 2.5 H Total Bilirubin 0.3 AST 24 ALT 34 Alkaline Phosphatase 75 D Total Protein 7.0 Albumin 3.4 Triglycerides 64 Cholesterol 134 Total LDL Cholesterol 81 HDL Cholesterol 49 TSH 0.58 Urine Color Ltyellow Urine Appearance Clear Urine pH 6.0 Ur Specific [place] 1.017 Urine Protein Negative Urine Glucose (UA) Negative Urine Ketones Negative Urine Blood 2+ H Urine Nitrite Negative Urine Bilirubin Negative Urine Urobilinogen Negative Ur Leukocyte Esterase 1+ H Urine WBC (Auto) 26 Urine RBC (Auto) 19 Ur Epithelial Cells Rare Urine Bacteria Rare Urine Mucus Rare IMAGING: - CXR: No acute chest pathology. No significant change since prior study. -Kidney/Renal US: Both kidneys appear unremarkable. Partially distended urinary bladder without wall thickening. Bilateral ureteral jets were identified. No postvoid urine residue is present. - CT scan of the left upper extremity: Moderate osteoarthritic changes involving the left acromioclavicular joint. No gross acute fracture or dislocation identified. - CT scan of the neck: No discrete mass or enlarged lymph nodes are identified. Multilevel degenerative disc disease in the cervical spine with anterior and posterior spur formation as well as bilateral uncovertebral hypertrophy, as described above impinging both C5 nerve roots at C4-C5 level, right more than left as well as impinging both C6 nerve roots at the C5-C6 level and probably slightly impinging left C7 nerve root at C6-C7 level. - C-Spine MRI: C3-C4. Moderate the left facet joint arthropathy. Left neural foraminal narrowing. C4-C5 Posterior disc osteophyte complex encroaching on ventral subarachnoid space. Osteoarthritis of uncovertebral joints, right greater than the left. Bilateral neural foraminal narrowing, right greater than the left. Central spinal canal stenosis. C5-C6. Prominent posterior disc osteophyte complex encroaching on ventral subarachnoid space. Osteoarthritis of uncovertebral joints. Facet joint arthropathy. Left posterolateral- foramina disc protrusion with peripheral calcifications - seen on the CT of the neck December 28, 2017. Bilateral neural foraminal narrowing. Central spinal canal stenosis. C6-C7. Broad-based posterior disc osteophyte complex encroaching on ventral subarachnoid space. Central spinal canal stenosis. No evidence of neural foraminal narrowing. - ECHO: Technically difficult study, LVEF is normal, Trace MR - EKG: NORMAL SINUS RHYTHM, LEFT AXIS DEVIATION, POSSIBLE INFERIOR INFARCT ( CITED ON OR BEFORE 11-NOV-2016), POSSIBLE ANTERIOR INFARCT (CITED ON OR BEFORE 17-JUL-2015) HOSPITAL COURSE: Date of Admission:12/27/17 Date of Discharge: 12/29/17 Prehospital course as per Dr. Duke Herman 57 yo female with PMH of Sarcoidosis and prior CO with stent x1 presented to the ED with complaint of 7 days of left neck pain and left arm numbness. She states that the pain and numbness are both intermittent throughout the last week. She denies any chest pain or shortness of breath at this time. She does also state that she has not been taking her home medication this week because she does not like taking a ton of pills that could have side effects, so she wanted to see her digital media intern before continuing her medications again. ER course was notable for Robaxin, Toradol, No acute ECG changes, elevating troponin 0.09, UA: 3+ blood, LE 2+, 30 WBC's, 61 RBC's, urine c/s, Bactrim given Hospital course Patient was admitted for nerve impingement symptoms and Troponemia. Neurosurgery (Dr. Schmitt) was consulted and recommended a C-Spine MRI (noted above ) and started the patient on Neurontin and Flexeril. Her neck pain and numbness improved and she was advised strongly against any passive neck adjustment/ manipulation as doing so could cause potentially devastating outcome. Cardiology (Dr. Lundberg) was consulted as patient admitted noncompliance with medications give hx of stents. An Echo was performed (as noted above) and Dr. Lundberg recommended Cardiac MRI and ETT as an outpatient. Additionally, she was found to have a UTI and was given 1 dose bactrim in the ED. Her UA was also significant for Microscopic hematuria and a kidney Renal US was done (as noted above). Her hypokalemia resolved. Home physical therapy was arranged. Patients symptoms continued to improve and she was discharged with recommended outpatient follow up. Minutes to complete discharge: 40 Discharge Summary Reason For Visit: ELEVATED TROPONIN LEVEL, LEFT UPPER EXTREMITY NUMB Current Active Problems Coronary artery disease (Acute) Demand ischemia (Acute) Elevated troponin (Acute) History of coronary artery stent placement (Acute) Left arm numbness (Acute) Old inferoposterior myocardial infarction (Acute) Condition: Stable - Instructions Diet, Activity, Other Instructions: You presented to the hospital with Left arm numbness and left sided neck pain. Imaging (CT and MRI) revealed stenosis and arthritis. You were evaluated by a neurosurgeon (Dr. Schmitt) and started on Neurontin and Flexeril. Please take these medications as prescribed. Please take caution when using these medications as they can cause drowsiness. Please avoid driving and using heaving machinery. Avoid any passive neck adjustment/manipulation as doing so could cause potentially devastating outcome given CT/MRI findings. Please follow up with Dr. Schmitt within one week for further evaluation. One of your cardiac lab tests was elevated. Please take your medications as prescribed. Please follow up with Dr. Toño outpatient for further evaluation. Please follow up with your primary car physician in one week. Please follow up with pain management if neck pain persists. Home physical therapy has been arranged for you. Please take laxatives as needed for constipation. If your symptoms worsen or if you experience fevers, chest pain or shortness breath, worsening pain, numbness or tingling, or any new concerns, please call 911 or return to the ED. Referrals: Esequiel Schmitt MD [Staff Physician] - Wayne Anderson MD [Primary Care Provider] - 1 Week Yomi Grant MD [Staff Physician] - Salomon Lundberg MD [Staff Physician] - Disposition: VNS/HOME HEALTH CARE - Home Medications Comprehensive Discharge Medication List: Ambulatory Orders Aspirin [Aspirin EC] 81 mg PO DAILY 12/15/17 Atorvastatin Ca [Lipitor] 80 mg PO DAILY 12/15/17 Clopidogrel Bisulfate [Plavix] 75 mg PO DAILY 12/15/17 Cyclobenzaprine HCl [Flexeril -] 5 mg PO BID #10 tablet 12/29/17 Gabapentin [Neurontin -] 300 mg PO TID #90 capsule 12/29/17 Metoprolol Succinate [Toprol Xl] 25 mg PO DAILY 12/29/17 Pantoprazole Sodium [Protonix] 40 mg PO DAILY 12/29/17 This patient is new to me today: No Emergency Visit: Yes ED Registration Date: 12/27/17 Care time: The patient presented to the Emergency Department on the above date and was hospitalized for further evaluation of their emergent condition. Critical Care patient: No - Discharge Referral Referred to [facility] Med P.C.: No
== END 2017-12-29 18:37 | disposition home health service (06) ==
LOC: JER 18:05 → JERBED 20:57 → J4W 12-28 00:43
PROVIDERS: ADMIT Internal Medicine; ATTEND Hospitalist
PROC: 3E013GC Introduction of Other Therapeutic Substance into Subcutaneous Tissue, Percutaneous Approach (ICD-10-PCS; principal; 2017-12-27)
DX: R20.0 Anesthesia of skin (principal); R31.29 Other microscopic hematuria; R77.8 Other specified abnormalities of plasma proteins; N39.0 Urinary tract infection, site not specified; E87.6 Hypokalemia; G54.9 Nerve root and plexus disorder, unspecified; I25.10 Atherosclerotic heart disease of native coronary artery without angina pectoris; I25.2 Old myocardial infarction; Z95.5 Presence of coronary angioplasty implant and graft; Z79.82 Long term (current) use of aspirin; E78.5 Hyperlipidemia, unspecified; M54.12 Radiculopathy, cervical region; I24.8 Other forms of acute ischemic heart disease; M47.892 Other spondylosis, cervical region; M50.321 Other cervical disc degeneration at C4-C5 level; M50.322 Other cervical disc degeneration at C5-C6 level; M50.323 Other cervical disc degeneration at C6-C7 level
CPT/HCPCS: 36415; 70490-TC; 71046-TC-FY; 72141-TC; 73200-TC-RT; 76775-TC; 76856-TC; 80048; 80053; 80061; 81003; 81015; 82550; 82553; 83721; 83735; 84100; 84443; 84484; 85025; 85027; 85610; 87086; 93005; 93010; 93306-TC; 96372; 97116-GP; 97161-GP; 99285-25; G0378; J1644

== ENCOUNTER 2018-05-17 10:43 | Emergency (ER) | payer OTHER ==
[2018-05-17 11:07] VITALS: BP 138/85; PULSE 82; TEMP 98.8; BMI 30.2
--- NOTE | 2018-05-17 12:03 | PDOC ---
History of Present Illness - General Chief Complaint: Head/Neck problem Stated Complaint: HEAD INJURY Time Seen by Provider: 05/17/18 11:38 History Source: Patient Exam Limitations: No Limitations - History of Present Illness Initial Comments: 05/17/18 11:56 58 yr female states she has pain to the back of her head for 2 weeks since she fell hit her forehead on the corner of the desk. no LOC neg nvd. pt in the past has been on plavix history of PR last year no plavix for 6 months. Pt denies nausea or vomiting. Severity: mild Associated Symptoms: reports: headaches Past History - Past Medical History Allergies/Adverse Reactions: Allergies Allergy/AdvReac Type Severity Reaction Status Date / Time No Known Allergies Allergy Verified 05/17/18 11:08 Home Medications: Ambulatory Orders Aspirin [Aspirin EC] 81 mg PO DAILY 12/15/17 Atorvastatin Ca [Lipitor] 80 mg PO DAILY 12/15/17 Clopidogrel Bisulfate [Plavix] 75 mg PO DAILY 12/15/17 Cyclobenzaprine HCl [Flexeril -] 5 mg PO BID #10 tablet 12/29/17 Gabapentin [Neurontin -] 300 mg PO TID #90 capsule 12/29/17 Metoprolol Succinate [Toprol Xl] 25 mg PO DAILY 12/29/17 Pantoprazole Sodium [Protonix] 40 mg PO DAILY 12/29/17 Anemia: No Asthma: No Cancer: No Cardiac Disorders: Yes ([place] (STENTS X1)) CVA: No COPD: No CHF: No DVT: No Dementia: No Diabetes: No GI Disorders: No Disorders: No HTN: Yes Hypercholesterolemia: Yes Liver Disease: No Seizures: No Thyroid Disease: No - Surgical History Abdominal Surgery: No Appendectomy: No Cardiac Surgery: Yes (CARDIAC STENT) Cholecystectomy: No Lung Surgery: No Neurologic Surgery: No Orthopedic Surgery: No - Immunization History Immunization Up to Date: Yes - Suicide/Smoking/Psychosocial Hx Smoking History: Never smoked Have you smoked in the past 12 months: No Information on smoking cessation initiated: No Hx Alcohol Use: No Drug/Substance Use Hx: No Substance Use Type: None Hx Substance Use Treatment: No Review of Systems - Review of Systems Able to Perform ROS?: Yes Is the patient limited Bengali proficient: No Constitutional: No: Symptoms Reported HEENTM: No: Symptoms Reported Respiratory: No: Symptoms reported Cardiac (ROS): No: Symptoms Reported ABD/GI: No: Symptoms Reported : No: Symptoms Reported Musculoskeletal: No: Symptoms Reported Integumentary: No: Symptoms Reported Neurological: Yes: Symptoms reported *Physical Exam - Vital Signs Last Vital Signs Temp Pulse Resp BP Pulse Ox 98.8 F 82 17 138/85 98 05/17/18 11:05 05/17/18 11:05 05/17/18 11:05 05/17/18 11:05 05/17/18 11:05 - Physical Exam General Appearance: Yes: Nourished, Appropriately Dressed HEENT: positive: EOMI, PHOEBE Neck: positive: Supple. negative: Tender Respiratory/Chest: positive: Lungs Clear, Normal Breath Sounds. negative: Chest Tender Cardiovascular: positive: Regular Rhythm, Regular Rate Musculoskeletal: positive: Normal Inspection Extremity: positive: Normal Capillary Refill, Normal Inspection, Normal Range of Motion Integumentary: positive: Normal Color, Dry, Warm Neurologic: positive: tongue and groove machine feeder II-XII NML intact, Fully Oriented, Alert, Normal Mood/ Affect, Normal Response, Motor Strength 5/5 Moderate Sedation - Procedure Monitoring Vital Signs: Procedure Monitoring Vital Signs Temperature 98.8 F 05/17/18 11:05 Pulse Rate 82 05/17/18 11:05 Respiratory Rate 17 05/17/18 11:05 Blood Pressure 138/85 05/17/18 11:05 O2 Sat by Pulse Oximetry (%) 98 05/17/18 11:05 ED Treatment Course - RADIOLOGY Radiology Studies Ordered: Category Date Time Status HEAD CT WITHOUT CONTRAST [CT] Stat CT Scan 05/17/18 11:42 Ordered Medical Decision Making - Medical Decision Making 05/17/18 12:04 cc: headache after hitting head 2 weeks ago on corner of table no loc no vomiting or nausea denies changes in vision pt has history of PR was on plavix is concerned about bleeding (stopped plavix 6 months ago) *DC/Admit/Observation/Transfer Diagnosis at time of Disposition: Head injury Qualifiers: Encounter type: initial encounter Qualified Code(s): S09.90XA - Unspecified injury of head, initial encounter - Discharge Dispostion Disposition: HOME Condition at time of disposition: Good - Referrals Referrals: Wayne Anderson MD [Primary Care Provider] - - Patient Instructions Additional Instructions: your cat scan of the head is normal take tylenol 650mg every 4-6hrs for headache drink at least 2 liters of water a day follow with your primary care doctor in 2-3 days - Post Discharge Activity
== END 2018-05-17 13:08 | disposition home or self-care (01) ==
LOC: JERFT 10:43
DX: S09.90XA Unspecified injury of head, initial encounter (principal); I25.2 Old myocardial infarction; I10 Essential (primary) hypertension; E78.00 Pure hypercholesterolemia, unspecified; Z95.5 Presence of coronary angioplasty implant and graft; W01.190A Fall on same level from slipping, tripping and stumbling with subsequent striking against furniture, initial encounter; Y93.9 Activity, unspecified; Y92.9 Unspecified place or not applicable
CPT/HCPCS: 70450-TC; 99281-25

== ENCOUNTER 2018-06-12 19:03 | Emergency (ER) | payer OTHER ==
--- NOTE | 2018-06-12 19:15 | PDOC ---
History of Present Illness - General Chief Complaint: Urinary Problem Stated Complaint: BURNING WITH URINATION Time Seen by Provider: 06/12/18 19:12 History Source: Patient Exam Limitations: No Limitations - History of Present Illness Initial Comments: 06/12/18 20:46 I just admitted now this is a 50-year-old female who comes in complaining of urinary discomfort on urinating. Patient denies any frequency, back pain and flank pain. Patient said she has the symptoms for several days and started herself on Levaquin. Patient has taken 3 Levaquin's. Otherwise she denies any back pain flank pain or abdominal pain. She also denies any fevers or nausea vomiting or diarrhea Allergies: None Past Medical History: none Social history: Lives with family. No smoking. No alcohol. No illicit drugs. Surgical history: None General: No fevers or chills, no weakness, no weight loss HEENT: No change in vision. No sore throat,. No ear pain CardioVascular: no chest discomfort. No shortness of breath Respiratory:No cough, or wheezing. Gastrointestinal: no nausea, vomiting, diarrhea or constipation, No rectal bleeding Genitourinary: + dysuria, no hematuria, or frequency Musculoskeletal: No joint or muscle pain or swelling Neurologic: No headache, vertigo, dizziness or loss of consciousness Psychiatric: nor depression Skin: No rashes or easy bruising Endocrine: no increased thirst or abnormal weight change Allergic: no skin or latex allergy All other systems reviewed and normal GENERAL: The patient is awake, alert, and fully oriented, in no acute distress. HEAD: Normal with no signs of trauma. EYES: Pupils equal, round and reactive to light, extraocular movements intact, sclera anicteric, conjunctiva clear. EXTREMITIES:atraumatic, Normal range of motion, no edema. NEUROLOGICAL: Normal speech, normal gait. PSYCH: Normal mood, normal affect. SKIN: Warm, Dry, normal turgor, no rashes or lesions noted. Assessment plan: Urine does show a moderate amount of red cells and a few bacteria and few white cells. Ultrasound was done that is negative for any renal pathology or stones Patient started on Macrobid and Pyridium and discharged home Past History - Past Medical History Allergies/Adverse Reactions: Allergies Allergy/AdvReac Type Severity Reaction Status Date / Time No Known Allergies Allergy Verified 06/12/18 19:08 Home Medications: Ambulatory Orders Atorvastatin Ca [Lipitor] 80 mg PO DAILY 12/15/17 Metoprolol Succinate [Toprol Xl] 25 mg PO DAILY 12/29/17 Levofloxacin [Levaquin] 500 mg PO BID 06/12/18 Nitrofurantoin Monohyd/M-Cryst [Macrobid -] 100 mg PO BID #14 capsule 06/12/18 Phenazopyridine HCl [Pyridium -] 100 mg PO TID #6 tablet 06/12/18 Anemia: No Asthma: No Cancer: No Cardiac Disorders: Yes ([place] (STENTS X1)) CVA: No COPD: No CHF: No DVT: No Dementia: No Diabetes: No GI Disorders: No Disorders: No HTN: Yes Hypercholesterolemia: Yes Liver Disease: No Seizures: No Thyroid Disease: No - Surgical History Abdominal Surgery: No Appendectomy: No Cardiac Surgery: Yes (CARDIAC STENT) Cholecystectomy: No Lung Surgery: No Neurologic Surgery: No Orthopedic Surgery: No - Immunization History Immunization Up to Date: Yes - Suicide/Smoking/Psychosocial Hx Smoking History: Never smoked Have you smoked in the past 12 months: No Hx Alcohol Use: No Drug/Substance Use Hx: No Substance Use Type: None Hx Substance Use Treatment: No ED Treatment Course - LABORATORY CBC & Chemistry Diagram: 06/12/18 19:58 06/12/18 19:58 *DC/Admit/Observation/Transfer Diagnosis at time of Disposition: Urinary tract infection Qualifiers: Urinary tract infection type: acute cystitis Hematuria presence: with hematuria Qualified Code(s): N30.01 - Acute cystitis with hematuria - Discharge Dispostion Disposition: HOME Condition at time of disposition: Stable Decision to Admit order: No - Prescriptions Prescriptions: Nitrofurantoin Monohyd/M-Cryst [Macrobid -] 100 mg PO BID #14 capsule Phenazopyridine HCl [Pyridium -] 100 mg PO TID #6 tablet - Referrals - Patient Instructions Additional Instructions: Take Macrobid 1 tablet twice a day for 7 days. For the discomfort and burning take Pyridium one tablet 3 times a day for 2 days Return to the emergency department immediately with ANY new, persistent or worsening symptoms. Continue any medications as previously prescribed by your physician. You should follow up with your primary doctor as soon as possible regarding today's emergency department visit. . Please make sure your doctor reviews the results of your emergency evaluation. Thank you for coming to the Emergency Department today for your care. It was a pleasure to see you today. Please note that your evaluation is INCOMPLETE until you follow-up with your doctor. - Post Discharge Activity
[2018-06-12 19:17] VITALS: BP 150/89; PULSE 94; TEMP 98.3; BMI 31.1
[2018-06-12 19:35] LABS: PH,URINE 5.5 (4.5-8); URINE APPEARANCE Clear; URINE BILIRUBIN 1+ (NEGATIVE); URINE COLOR Yellow; URINE GLUCOSE (UA) Negative (NEGATIVE); URINE KETONE Trace (NEGATIVE); URINE LEUK ESTERASE TRACE (NEGATIVE); URINE NITRITE Negative (NEGATIVE); URINE PROTEIN 1+ (NEGATIVE); URINE UROBILINOGEN 0.2 (0.2-1.0)
[2018-06-12 19:51] LABS: EPI CELLS 1+ /HPF
[2018-06-12 19:52] LABS: URINE BACTERIA 1+ /hpf (NEGATIVE)
[2018-06-12 20:13] LABS: EOS % 1.7 % (0-4.5); HEMATOCRIT 44.4 % (32.4-45.2); HEMOGLOBIN 14.2 GM/dl (10.7-15.3); LYMPH % 43.2 % (8-40); MCHC 32.1 g/dl (32.0-36.0); MEAN CELL VOLUME 90.5 fl (80-96); MEAN PLT VOLUME 8.4 fl (7.5-11.1); MONO % 7.5 % (3.8-10.2); NEUT % 46.6 % (42.8-82.8); PLATELET COUNT 276 K/MM3 (134-434); RDW 13.5 % (11.6-15.6); WHITE BLOOD COUNT 4.3 K/mm3 (4.0-10.8)
[2018-06-12 20:25] LABS: ALBUMIN 3.8 g/dl (3.5-5.0); ALK PHOS 79 U/L (32-92); ANION GAP 9 MMOL/L (8-16); BILIRUBIN,TOTAL 0.4 mg/dl (0.2-1.0); BLOOD UREA NITROGEN 16 mg/dl (7-18); CALCIUM 9.1 mg/dl (8.4-10.2); CHLORIDE 101 mmol/L (98-107); CO2 25 mmol/L (22-28); CREATININE 0.8 mg/dl (0.6-1.3); GLUCOSE,RANDOM 142 mg/dl (74-106); POTASSIUM 3.4 mmol/L (3.5-5.1); SGOT/AST 28 U/L (10-42); SGPT/ALT 25 U/L (10-40); SODIUM 135 mmol/L (136-145); TOT PROT 7.4 g/dl (6.4-8.3)
[2018-06-12] MEDS ORDERED: NITROFURANTOIN MACROCRYSTAL 50 MG CAPSULE (FP) ONE (20:39)
[2018-06-12] MEDS ORDERED: NITROFURANTOIN MACROCRYSTAL 50 MG CAPSULE (FP) PO SCH (20:45)
[2018-06-12] MEDS ORDERED: PHENAZOPYRIDINE HCL 100 MG TABLET (FP) PO ONE (20:45)
[2018-06-12] MEDS ORDERED: PHENAZOPYRIDINE HCL 100 MG TABLET (FP) ONE (20:47)
== END 2018-06-12 20:51 | disposition home or self-care (01) ==
LOC: FER 19:03
DX: N30.01 Acute cystitis with hematuria (principal); I10 Essential (primary) hypertension; E78.00 Pure hypercholesterolemia, unspecified; Z95.5 Presence of coronary angioplasty implant and graft
CPT/HCPCS: 36415; 76775-TC; 80053; 81003; 81015; 85025; 87086; 99282-25

== ENCOUNTER 2018-08-21 18:50 | Emergency (ER) | payer OTHER ==
[2018-08-21 19:01] VITALS: BP 139/77; PULSE 76; TEMP 97.9; BMI 30.2
--- NOTE | 2018-08-21 19:12 | PDOC ---
History of Present Illness - General History Source: Patient Exam Limitations: No Limitations <J Carlos Stuart - Last Filed: 08/21/18 21:11> <Jody De Anda Emory - Last Filed: 08/22/18 03:50> - General Chief Complaint: Chest Pain Stated Complaint: CHEST PAIN Time Seen by Provider: 08/21/18 19:11 - History of Present Illness Initial Comments: 08/21/18 21:11 The patient is a 58 year old female, with a significant past medical history of NH (s/p stent, 1 year ago, not compliant with medication), sarcoidosis, R hip replacement, and full hysterectomy, who presents to the emergency department with 3 days of R arm numbness and chest pain. The patient reports her R arm numbness is constant, radiates up and down her arm and she feels the numbness sensation all the time. The patient states her chest pain is intermittent, last about 10 min and is described as a throbbing pain, however , at baseline the patient reports her chest pain is a dull ache. The patient states her chest pain is associated with shortness of breath but denies any back pain or neck pain. The patient reports she was admitted and discharged from [facility] in November 2017 for similar symptoms in her left arm, was told to follow up with her neuro surgeon but never did. The patient denies fever, chills, nausea, vomit, diarrhea or constipation. The patient denies dysuria, frequency, urgency or hematuria. Allergies: NKDA Past surgical history: CARDIAC STENT, R hip replacement, and full hysterectomy Social history: None reported PCP: Dr. Wayne Anderson Artist Consultant: Dr. Johan Clarke (J Carlos Stuart) Past History <J Carlos Stuart - Last Filed: 08/21/18 21:11> - Past Medical History Anemia: No Asthma: Yes (BRONCHIAL ASTHMA) Cancer: No Cardiac Disorders: Yes (NH ,CAD,ASHD) CVA: No COPD: No CHF: No DVT: No Dementia: No Diabetes: No GI Disorders: No Disorders: No HTN: Yes Hypercholesterolemia: Yes Liver Disease: No Seizures: No Thyroid Disease: No - Surgical History Abdominal Surgery: No Appendectomy: No Cardiac Surgery: Yes (CARDIAC STENT) Cholecystectomy: No Lung Surgery: No Neurologic Surgery: No Orthopedic Surgery: Yes (TOTAL KNEE REPLACEMENT) - Immunization History Immunization Up to Date: Yes - Suicide/Smoking/Psychosocial Hx Smoking History: Never smoked Have you smoked in the past 12 months: No Hx Alcohol Use: Yes (OCASIONAL) Drug/Substance Use Hx: No Substance Use Type: Cocaine Hx Substance Use Treatment: Yes (COCAINE USE NONE SINCE 1996) <Jody De Anda - Last Filed: 08/22/18 03:50> - Past Medical History Allergies/Adverse Reactions: Allergies Allergy/AdvReac Type Severity Reaction Status Date / Time No Known Allergies Allergy Verified 08/21/18 18:56 Home Medications: Ambulatory Orders Atorvastatin Ca [Lipitor] 80 mg PO DAILY 12/15/17 Aspirin [Aspirin EC] 81 mg PO DAILY 08/21/18 Cardiac Specific PMH - Complaint Specific PMHX Pacemaker: No <Jody De Anda - Last Filed: 08/22/18 03:50> Review of Systems - Review of Systems Able to Perform ROS?: Yes All Other Systems: Reviewed and Negative <J Carlos Stuart - Last Filed: 08/21/18 21:11> <Jody De Anda - Last Filed: 08/22/18 03:50> - Review of Systems Comments:: 08/21/18 21:13 GENERAL/CONSTITUTIONAL: No fever or chills. No weakness. HEAD, EYES, EARS, NOSE AND THROAT: No change in vision. No ear pain or discharge. No sore throat. CARDIOVASCULAR:(+) chest pain or shortness of breath. RESPIRATORY: No cough, wheezing, or hemoptysis. GASTROINTESTINAL: No nausea, vomiting, diarrhea or constipation. GENITOURINARY: No dysuria, frequency, or change in urination. MUSCULOSKELETAL: (+) R arm numbness .No joint or muscle swelling or pain. No neck or back pain. SKIN: No rash NEUROLOGIC: No headache, vertigo, loss of consciousness, or change in strength/ sensation. ENDOCRINE: No increased thirst. No abnormal weight change. HEMATOLOGIC/LYMPHATIC: No anemia, easy bleeding, or history of blood clots. ALLERGIC/IMMUNOLOGIC: No hives or skin allergy. (J Carlos Stuart) *Physical Exam <J Carlos Stuart - Last Filed: 08/21/18 21:11> <Jody De Anda - Last Filed: 08/22/18 03:50> - Vital Signs Last Vital Signs Temp Pulse Resp BP Pulse Ox 97.9 F 76 18 139/77 100 08/21/18 18:50 08/21/18 18:50 08/21/18 18:50 08/21/18 18:50 08/21/18 18:50 - Physical Exam Comments: 08/21/18 21:13 GENERAL: Awake, alert, and fully oriented, in no acute distress HEAD: No signs of trauma EYES: PERRLA, EOMI, sclera anicteric, conjunctiva clear ENT: Auricles normal inspection, hearing grossly normal, nares patent, oropharynx clear without exudates. Moist mucosa NECK: Normal ROM, supple, no lymphadenopathy, JVD, or masses LUNGS: Breath sounds equal, clear to auscultation bilaterally. No wheezes, and no crackles HEART: Regular rate and rhythm, normal S1 and S2, no murmurs, rubs or gallops ABDOMEN: Soft, nontender, normoactive bowel sounds. No guarding, no rebound. No masses EXTREMITIES: Normal range of motion, no edema. No clubbing or cyanosis. No cords, erythema, or tenderness NEUROLOGICAL: Cranial nerves II through XII grossly intact. Normal speech, normal gait SKIN: Warm, Dry, normal turgor, no rashes or lesions noted. (J Carlos Stuart) ED Treatment Course - LABORATORY CBC & Chemistry Diagram: 08/21/18 19:00 08/21/18 19:00 <J Carlos Stuart - Last Filed: 08/21/18 21:11> - LABORATORY CBC & Chemistry Diagram: 08/21/18 19:00 08/21/18 19:00 <Jody De Anda - Last Filed: 08/22/18 03:50> - ADDITIONAL ORDERS Additional order review: Laboratory Results 08/21/18 08/21/18 08/21/18 23:00 23:00 21:20 D-Dimer Sodium Potassium Chloride Carbon Dioxide Anion Gap BUN Creatinine Creat Clearance w eGFR Random Glucose Calcium Total Bilirubin AST ALT Alkaline Phosphatase Creatine Kinase 271 H Creatine Kinase Index 1.2 CK-MB (CK-2) 3.5 Troponin I < 0.03 Total Protein Albumin Urine Color Yellow Urine Appearance Clear Urine pH 6.0 Urine Protein Negative Urine Glucose (UA) Negative Urine Ketones Negative Urine Blood 2+ Urine Nitrite Negative Urine Bilirubin Negative Urine Urobilinogen 0.2 Ur Leukocyte Esterase 2+ Urine WBC (Auto) 20-30 Urine RBC (Auto) 10-20 Urine Bacteria (Auto) 2+ 08/21/18 08/21/18 08/21/18 19:30 19:00 19:00 D-Dimer 230 Sodium 136 Potassium 3.9 Chloride 102 Carbon Dioxide 26 Anion Gap 8 BUN 16 Creatinine 0.7 Creat Clearance w eGFR 85.95 Random Glucose 92 Calcium 8.8 Total Bilirubin 0.5 AST 24 ALT 23 Alkaline Phosphatase 71 Creatine Kinase 303 H Creatine Kinase Index 1.3 CK-MB (CK-2) 4.2 H Troponin I < 0.03 Total Protein 6.8 Albumin 3.7 Urine Color Urine Appearance Urine pH Urine Protein Urine Glucose (UA) Urine Ketones Urine Blood Urine Nitrite Urine Bilirubin Urine Urobilinogen Ur Leukocyte Esterase Urine WBC (Auto) Urine RBC (Auto) Urine Bacteria (Auto) 08/21/18 19:00 RBC 4.51 MCV 90.3 MCHC 32.5 RDW 13.2 MPV 8.4 Neutrophils % 42.9 Lymphocytes % 44.6 H Monocytes % 9.8 Eosinophils % 1.8 Basophils % 0.9 Medical Decision Making <J Carlos Stuart - Last Filed: 08/21/18 21:11> <Jody De Anda - Last Filed: 08/22/18 03:50> - Medical Decision Making Documentation has been prepared under my direction and personally reviewed by me in its entirety. I attest that this documented accurately reflects all work, treatment, procedures and medical decision making performed by me. As noted above, this 58-year-old woman with a history of CAD/sarcoidosis/ cervical radiculopathy presents with a few day history of right-sided, "throbbing", intermittent chest pain as well as the recent development of right arm numbness. No other symptoms noted. Exam as noted. 12-lead electrocardiogram is performed and interpreted by me: Normal sinus rhythm at 71 bpm, there is left axis deviation. There are Q waves in III and aVF (unchanged from previous EKG) no acute ST or T-wave abnormalities. No evidence of cardiac arrhythmia. No significant difference from previous EKG. Patient's right-sided chest pain and right arm numbness in the face of previous NH will be investigated with CBC/chemistry profile/cardiac enzymes. Differential diagnosis included myocardial ischemia/infarct, sarcoidosis flareup , cervical radiculopathy Patient had mentioned that her urine had appeared dark over the last few days; she denies dysuria/urinary frequency or urgency/hematuria. Urine sent for UA. Laboratory evaluation is essentially normal except for urinalysis which shows 20 -30 WBCs/10-20 RBCs/2+ bacteria. Urine sent for C&S. Laboratory evaluation including troponin is essentially normal. Troponin will be repeated 4 hours after he first troponin was drawn (11:00P) Second troponin also negative. Patient will be discharged with instructions to continue her medications as prescribed. She should follow up with Dr. Schmitt of the neurosurgery staff (to investigate her cervical radiculopathy; patient had not followed up with neurosurgery or neurology after the diagnosis was made last year). Also, she should follow-up with her barrel stave inspector, Dr. Medrano within the next 2-3 days. She should return to the emergency room if she has persistent severe pain, shortness of breath/nausea (Jody De Anda) *DC/Admit/Observation/Transfer <J Carlos Stuart - Last Filed: 08/21/18 21:11> <Jody De Anda - Last Filed: 08/22/18 03:50> Diagnosis at time of Disposition: Atypical chest pain, Cervical radiculopathy - Discharge Dispostion Disposition: HOME Condition at time of disposition: Stable - Referrals Referrals: Wayne Anderson MD [Primary Care Provider] - Esequiel Schmitt MD [Staff Physician] - - Patient Instructions Printed Discharge Instructions: DI for Atypical Chest Pain, DI for Cervical Radiculopathy Additional Instructions: continue to take your medications as prescribed followup with neurosurgeon(Dr Schmitt) within 5 days; call office tomorrow followup with your barrel stave inspector within 5 days return to ER if you have severe pain/shortness of breath or arm weakness - Attestations Scribe Attestion: 08/21/18 21:14 Documentation prepared by J Carlos Stuart, acting as medical laboratory technologist for Jody De Anda MD (J Carlos Stuart)
[2018-08-21 20:29] LABS: BASO % 0.9 % (0-2.0); EOS % 1.8 % (0-4.5); HEMATOCRIT 40.7 % (32.4-45.2); HEMOGLOBIN 13.2 GM/dl (10.7-15.3); LYMPH % 44.6 % (8-40); MCH 29.3 pg (25.7-33.7); MCHC 32.5 g/dl (32.0-36.0); MEAN CELL VOLUME 90.3 fl (80-96); MEAN PLT VOLUME 8.4 fl (7.5-11.1); MONO % 9.8 % (3.8-10.2); NEUT % 42.9 % (42.8-82.8); PLATELET COUNT 251 K/MM3 (134-434); RBC 4.51 M/mm3 (3.60-5.2); RDW 13.2 % (11.6-15.6); WHITE BLOOD COUNT 3.8 K/mm3 (4.0-10.8)
[2018-08-21 20:42] LABS: ALBUMIN 3.7 g/dl (3.4-5.0); ALK PHOS 71 U/L (45-117); ANION GAP 8 MMOL/L (8-16); BILIRUBIN,TOTAL 0.5 mg/dl (0.2-1); BLOOD UREA NITROGEN 16 mg/dl (7-18); CALCIUM 8.8 mg/dl (8.5-10); CHLORIDE 102 mmol/L (98-107); CO2 26 mmol/L (21-32); CREATININE 0.7 mg/dl (0.55-1.3); GLUCOSE,RANDOM 92 mg/dl (74-106); POTASSIUM 3.9 mmol/L (3.5-5.1); SGOT/AST 24 U/L (15-37); SGPT/ALT 23 U/L (13-61); SODIUM 136 mmol/L (136-145); TOT PROT 6.8 g/dl (6.4-8.2)
[2018-08-21 23:26] LABS: URINE BACTERIA 2+ /hpf (NEGATIVE); URINE WBC 20-30 (NEGATIVE)
--- NOTE | 2018-08-22 09:27 | EKG ---
Test Reason : Blood Pressure : / mmHG Vent. Rate : 071 BPM Atrial Rate : 071 BPM P-R Int : 148 ms QRS Dur : 104 ms QT Int : 396 ms P-R-T Axes : 018 -31 000 degrees QTc Int : 430 ms NORMAL SINUS RHYTHM LEFT AXIS DEVIATION POSSIBLE INFERIOR INFARCT (CITED ON OR BEFORE 11-NOV-2016) CANNOT RULE OUT ANTERIOR INFARCT (CITED ON OR BEFORE 17-JUL-2015) ABNORMAL ECG WHEN COMPARED WITH ECG OF 27-DEC-2017 18:34, NO SIGNIFICANT CHANGE WAS FOUND Confirmed by EL HUBBARD, JESSENIA ([id number]) on 08/22/2018 9:27:18 AM Referred By: Confirmed By:JESSENIA GALLEGOS MD
== END 2018-08-21 23:47 | disposition home or self-care (01) ==
LOC: FER 18:50 → SUPCPDRO 18:50 → FER 23:47
DX: R07.89 Other chest pain (principal); M54.12 Radiculopathy, cervical region; I10 Essential (primary) hypertension; E78.00 Pure hypercholesterolemia, unspecified; Z95.5 Presence of coronary angioplasty implant and graft
CPT/HCPCS: 36415; 80053; 81015; 82550; 82553; 84484; 85025; 85379; 87086; 93005; 99282-25

== ENCOUNTER 2018-10-01 15:40 | Emergency (ER) | payer OTHER ==
[2018-10-01] MEDS ORDERED: ACETAMINOPHEN 325 MG TABLET (FP) PO ONE (16:18)
[2018-10-01 16:24] VITALS: BP 135/101; PULSE 90; TEMP 98.5; BMI 31.1
[2018-10-01] MEDS ORDERED: ACETAMINOPHEN 325 MG TABLET (FP) ONE (16:33)
--- NOTE | 2018-10-01 17:30 | PDOC ---
Documentation entered by Tommy Mitchell SCRIBE, acting as scribe for Lyndon Walker MD. Lyndon Walker MD: This documentation has been prepared by the lorettaibeStephen Aiswarya, SCRIBE, under my direction and personally reviewed by me in its entirety. I confirm that the documentation accurately reflects all work, treatment, procedures, and medical decision making performed by me. History of Present Illness - General Chief Complaint: Injury Stated Complaint: FALL Time Seen by Provider: 10/01/18 15:49 History Source: Patient Exam Limitations: No Limitations - History of Present Illness Initial Comments: 10/01/18 16:46 The patient is a 58 year old female, with a significant PMH of bronchial asthma , FL, CAD, ASHD , HLD, who presents to the emergency department for evaluation of a fall occurred this morning. The patient states she was in the lobby of her building when she slipped on water and fell forward towards her left side. Patient reports pain to the her left side specifically her left knee , hip, and foot that progressively worsened throughout the day. Prior to falling the pt was in her USOH without any symptoms. The patient denies chest pain, neck pain, palpitations, back pain, abd pain, numbness/tingling/weakness, shortness of breath, and headache. Denies numbness or tingling. Denies any head trauma or bleeding. Allergies: NKDA Past surgical history: Cardiac stent, Total knee replacement. Social history: No reported PCP: None reported Past History - Past Medical History Allergies/Adverse Reactions: Allergies Allergy/AdvReac Type Severity Reaction Status Date / Time No Known Allergies Allergy Verified 08/21/18 18:56 Home Medications: Ambulatory Orders Atorvastatin Ca [Lipitor] 80 mg PO DAILY 12/15/17 Aspirin [Aspirin EC] 81 mg PO DAILY 08/21/18 Anemia: No Asthma: Yes (BRONCHIAL ASTHMA) Cancer: No Cardiac Disorders: Yes (FL ,CAD,ASHD) CVA: No COPD: No CHF: No DVT: No Dementia: No Diabetes: No GI Disorders: No Disorders: No HTN: Yes Hypercholesterolemia: Yes Liver Disease: No Seizures: No Thyroid Disease: No - Surgical History Abdominal Surgery: No Appendectomy: No Cardiac Surgery: Yes (CARDIAC STENT) Cholecystectomy: No Lung Surgery: No Neurologic Surgery: No Orthopedic Surgery: Yes (TOTAL KNEE REPLACEMENT) - Immunization History Immunization Up to Date: Yes - Suicide/Smoking/Psychosocial Hx Smoking History: Never smoked Have you smoked in the past 12 months: No Information on smoking cessation initiated: No Hx Alcohol Use: No Drug/Substance Use Hx: No Substance Use Type: Cocaine Hx Substance Use Treatment: Yes (COCAINE USE NONE SINCE 1996) Review of Systems - Review of Systems Able to Perform ROS?: Yes Comments:: 10/01/18 16:47 Constitutional: Pt denies Fever, Chills, weakness, HEENT: denies vision changes, sore throat Respiratory: Denies cough, sob, hemoptysis Cardiac: denies chest pain, palpitations, light headedness, leg swelling : denies dysuria, frequency, discharge Musculoskeletal: +L sided leg pain denies back pain, joint swelling skin:denies bruising, erythema, rash neurological: denies headache, numbness, focal weakness, tingling, ataxia, weakness hematologic: denies anemia, easy bruising, easy bleeding *Physical Exam - Vital Signs Last Vital Signs Temp Pulse Resp BP Pulse Ox 98.5 F 90 20 135/101 H 98 10/01/18 15:41 10/01/18 15:41 10/01/18 15:41 10/01/18 15:41 10/01/18 15:41 - Physical Exam Comments: 10/01/18 16:26 GENERAL: The patient is awake, alert, and fully oriented, Nontoxic - in no acute distress. HEAD: Normocephalic, atraumatic. No focal bony ttp to scalp/face. EYES: extraocular movements intact, sclera anicteric, conjunctiva clear. ENT: Normal voice, Moist mucous membranes. No loose teeth, +super ficicial abrasion on the inner lower lip without active bleeding and no wound. NECK: Normal range of motion, supple LUNGS: Breath sounds equal, clear to auscultation bilaterally. No wheezes, no rhonchi, no rales. HEART: Regular rate and rhythm, normal S1 and S2 without murmur, rub or gallop. ABDOMEN: Soft, nontender, normoactive bowel sounds. No guarding, no rebound. . No CVA tenderness NEUROLOGICAL: No facial assymetry, Normal speech, PSYCH: Normal mood, normal affect. SKIN: Warm, Dry, normal turgor, Back: No midline tenderness to the cervical, thoracic or lumbar spine Musculoskelatal: FROM of b/l shoulders, elbows, wrist. FROM of R hips, knees, ankles - No signs of ecchymosis, erythema, or crepitus noted on palpation extremities, chest wall, clavicals, ribs, back. LLE: Mild ttp to lateral aspect of gluteus gonzález of L buttock, mild ttp to L hip w/ normal ROM. L knee with normal rom with mild diffuse ttp wo crepitus, deformity , mild ttp to L 3-4 digit without obvious deformity ED Treatment Course - RADIOLOGY Radiology Studies Ordered: Category Date Time Status FOOT-LEFT [RAD] Stat Radiology 10/01/18 16:18 Ordered HIP & PELVIS-LEFT [RAD] Stat Radiology 10/01/18 16:18 Ordered KNEE 3 POS-LEFT [RAD] Stat Radiology 10/01/18 16:18 Ordered Medical Decision Making - Medical Decision Making 10/01/18 16:28 58F sp mechanical fall pain to L LE xrays to r/o fx suspect contusion/strains tylenol for pain no loc, presyncopal sympoms 10/01/18 18:50 pts R knee xray shows ?lesion on the idstal femur - no acut findings otherwise - will await final ready by radiology and notify pt of results. was originally submited to [facility], but pt would like to go home to her 5 yr old. pt given a hard sole shoe for comfort. I discussed the physical exam findings, ancillary test results and final diagnoses with the patient. I answered all of the patient's questions. The patient was satisfied with the care received and felt comfortable with the discharge plan and treatment plan. The patient will call their primary care physician within 24 hours to arrange follow-up and will return to the Emergency Department with any new, persistent or worsening symptoms. *DC/Admit/Observation/Transfer Diagnosis at time of Disposition: Foot pain, left Fall from slipping on slippery surface Qualifiers: Encounter type: initial encounter Qualified Code(s): W01.0XXA - Fall on same level from slipping, tripping and stumbling without subsequent striking against object, initial encounter Knee pain, left Qualifiers: Chronicity: acute Qualified Code(s): M25.562 - Pain in left knee - Discharge Dispostion Disposition: HOME Condition at time of disposition: Improved Decision to Admit order: No - Referrals Schedule a call back: Xray results Referrals: ON STAFF,NOT [Non Staff, Medical] - - Patient Instructions Printed Discharge Instructions: DI for Knee Pain Additional Instructions: Return to the emergency department immediately with ANY new, persistent or worsening symptoms. Take motrin or tylenol as needed for your pain. You MUST call and follow up with your doctor in 3-4 days for further evaluation of your symptoms. Results were discussed with you. Please make sure your doctor reviews the results of your emergency evaluation. We will call you with the official results of your xray tomorrow. - Post Discharge Activity
== END 2018-10-01 19:10 | disposition home or self-care (01) ==
LOC: FER 15:40
DX: M25.562 Pain in left knee (principal); M79.672 Pain in left foot; W01.0XXA Fall on same level from slipping, tripping and stumbling without subsequent striking against object, initial encounter; Y93.01 Activity, walking, marching and hiking; Y92.098 Other place in other non-institutional residence as the place of occurrence of the external cause; I10 Essential (primary) hypertension; I25.2 Old myocardial infarction; I25.10 Atherosclerotic heart disease of native coronary artery without angina pectoris; E78.5 Hyperlipidemia, unspecified; J45.909 Unspecified asthma, uncomplicated; Z95.5 Presence of coronary angioplasty implant and graft
CPT/HCPCS: 73523-TC-FY; 73562-TC-LT-FY; 73630-TC-LT; 99281-25

== ENCOUNTER 2021-04-02 05:04 | Day surgery (SDC) | payer OTHER ==
[2021-03-19 16:08] VITALS: BMI 33.4
[2021-04-02 13:30] VITALS: BP 125/63; PULSE 66; TEMP 97
== END 2021-04-02 13:55 | disposition home or self-care (01) ==
LOC: JASU-ENDO 05:04
PROVIDERS: ATTEND Internal Medicine Gastroenterology
PROC: 0DBN8ZX Excision of Sigmoid Colon, Via Natural or Artificial Opening Endoscopic, Diagnostic (ICD-10-PCS; principal; 2021-04-02 11:30)
DX: Z12.11 Encounter for screening for malignant neoplasm of colon (principal); D12.5 Benign neoplasm of sigmoid colon; K64.8 Other hemorrhoids
CPT/HCPCS: 88305-TC

== ENCOUNTER 2021-09-03 11:19 | Emergency (ER) | payer OTHER ==
[2021-09-03] MEDS ORDERED: SODIUM CHLORIDE 0.9% 1000 ML INFUS.BAG IV ONE (11:28)
[2021-09-03 11:31] VITALS: TEMP 98; BMI 30.2
[2021-09-03 12:22] LABS: ALBUMIN 3.8 g/dl (3.4-5.0); BILIRUBIN,TOTAL 0.5 mg/dl (0.2-1); CALCIUM 9.4 mg/dl (8.5-10); CREATININE 0.7 mg/dl (0.55-1.3)
[2021-09-03 12:56] LABS: EPITHELIAL CELLS FEW /hpf
[2021-09-03 13:27] LABS: BASO % 1.7 % (0-2.0); EOS % 9.2 % (0-4.5); HEMATOCRIT 41.8 % (32.4-45.2); HEMOGLOBIN 13.9 GM/dL (10.7-15.3); LYMPH % 39.3 % (8-40); MCH 29.7 pg (25.7-33.7); MCHC 33.4 g/dl (32.0-36.0); NEUT % 41.8 % (42.8-82.8); PLATELET COUNT 257 10^3/uL (134-434); RDW 13.9 % (11.6-15.6)
[2021-09-03 14:40] VITALS: BP 129/88; PULSE 71
== END 2021-09-03 14:40 | disposition home or self-care (01) ==
LOC: FER 11:19
DX: R42 Dizziness and giddiness (principal); R30.0 Dysuria; I10 Essential (primary) hypertension
CPT/HCPCS: 36415; 71045-TC-FY; 80053; 81003; 81015; 84484; 85025; 87086; 93005; 99285-25

== ENCOUNTER 2022-02-09 11:28 | Emergency (ER) | payer OTHER ==
[2022-02-09 11:33] VITALS: BP 135/68; PULSE 66; RESP 18; TEMP 97.8; BMI 31.1
[2022-02-09] MEDS ORDERED: ACETAMINOPHEN 325 MG TABLET (FP) PO ONE (12:15)
[2022-02-09] MEDS ORDERED: ACETAMINOPHEN 325 MG TABLET (FP) ONE (12:26)
== END 2022-02-09 12:50 | disposition home or self-care (01) ==
LOC: FER 11:28
DX: R51.9 Headache, unspecified (principal)
CPT/HCPCS: 99283-25

== ENCOUNTER 2022-03-11 19:25 | Emergency (ER) | payer OTHER ==
[2022-03-11 19:47] VITALS: BP 143/79; PULSE 73; RESP 16; TEMP 98.1; BMI 31.2
[2022-03-11] MEDS ORDERED: KETOROLAC TROMETHAMINE 60 MG/2 ML VIAL IM ONE (20:34)
[2022-03-11] MEDS ORDERED: KETOROLAC TROMETHAMINE 60 MG/2 ML VIAL ONE (20:40)
== END 2022-03-11 21:06 | disposition home or self-care (01) ==
LOC: FER 19:25
PROC: 3E0233Z Introduction of Anti-inflammatory into Muscle, Percutaneous Approach (ICD-10-PCS; principal; 2022-03-11)
DX: M54.12 Radiculopathy, cervical region (principal)
CPT/HCPCS: 93005; 99284-25

== ENCOUNTER 2023-03-13 14:49 | Emergency (ER) | payer OTHER ==
[2023-03-13] MEDS ORDERED: predniSONE 20 MG TABLET (UD) PO ONE (14:55)
[2023-03-13 15:00] VITALS: BP 134/85; PULSE 76; RESP 20; TEMP 98.1; BMI 32.1
[2023-03-13] MEDS ORDERED: predniSONE 20 MG TABLET (UD) ONE (15:09)
== END 2023-03-13 16:05 | disposition home or self-care (01) ==
LOC: FER 14:49
DX: R05.9 Cough, unspecified (principal); R09.89 Other specified symptoms and signs involving the circulatory and respiratory systems; J40 Bronchitis, not specified as acute or chronic
CPT/HCPCS: 71046-TC-FY; 99283-25

== ENCOUNTER 2024-11-28 10:25 | Emergency (ER) | payer OTHER ==
[2024-11-28 10:48] VITALS: BP 138/102; PULSE 77; RESP 20; TEMP 98.2
[2024-11-28] MEDS ORDERED: LIDOCAINE 5% TOPICAL PATCH ONE (10:51)
[2024-11-28] MEDS ORDERED: KETOROLAC TROMETHAMINE 30 MG/1 ML VIAL ONE (10:51)
[2024-11-28] MEDS ORDERED: ACETAMINOPHEN 500 MG TABLET (FP) ONE (10:51)
[2024-11-28] MEDS: KETOROLAC TROMETHAMINE 30 MG/1 ML VIAL IM ONE (10:59)
[2024-11-28] MEDS: LIDOCAINE 5% TOPICAL PATCH TP ONE (10:59)
[2024-11-28] MEDS: ACETAMINOPHEN 500 MG TABLET (FP) PO ONE (11:00)
[2024-11-28] MEDS ORDERED: LIDOCAINE PATCH REMOVAL MC ONE (22:00)
== END 2024-11-28 12:38 | disposition home or self-care (01) ==
LOC: FER 10:25
PROC: 3E0233Z Introduction of Anti-inflammatory into Muscle, Percutaneous Approach (ICD-10-PCS; principal; 2024-11-28)
DX: B02.29 Other postherpetic nervous system involvement (principal); Z91.148 Patient's other noncompliance with medication regimen for other reason; T43.8X6A Underdosing of other psychotropic drugs, initial encounter
CPT/HCPCS: 99284-25

== ENCOUNTER 2024-12-03 19:41 | Emergency (ER) | payer OTHER ==
[2024-12-03 20:01] VITALS: BP 111/72; PULSE 79; RESP 20; TEMP 98.2; BMI 30.4
[2024-12-03] MEDS ORDERED: GABAPENTIN 300 MG CAPSULE ONE (20:20)
[2024-12-03] MEDS: GABAPENTIN 300 MG CAPSULE PO ONE (20:22)
== END 2024-12-03 20:28 | disposition home or self-care (01) ==
LOC: FER 19:41
DX: R07.9 Chest pain, unspecified (principal); B02.8 Zoster with other complications
CPT/HCPCS: 99283-25